=== PATIENT | male | born 1935 | race Caucasian/White ===

== ENCOUNTER 2016-10-19 10:41 | Inpatient (IN) | payer OTHER ==
[~2016-10-19] VITALS: Ht 177.8 cm; Wt 101.6 kg
[2016-10-19] VITALS (8 sets, daily range): BP systolic 123–146; BP diastolic 64–77; PULSE 91–119; TEMP 36.5–36.8; O2SAT 85–96; Ht 177.8 cm; Wt 101.6 kg
[~2016-10-19 10:41] MED LIST: ALBUAER2 INH; AMIO200T4 PO; ASTN NAE; ATV1 PO; DUTA1CAP3 PO; FENO134C PO; FEXO1TAB46 PO; FLM4 PO; FLNIN/ NAE; FURO20TA PO; LEVO75TA PO; LSN40 PO; MAGN400T5 PO; MECL25TA2 PO; NIAC250T8 PO; NRN100 PO; NRV/10 PO; OMEP20CA9 PO; VENL150C56 PO; WARF-280 PO
[2016-10-19] MEDS ORDERED: METHYLPREDNISOLONE 125 MG VIAL IV STA (10:53)
[2016-10-19] MEDS: MAGNESIUM SULFATE 1GM / D5W 1 GM BAG IV STA (10:55)
[2016-10-19] MEDS ORDERED: ALBUT/IPRATROP 3MG/0.5MG NEB 3 ML VIAL INH STA (10:55)
--- NOTE | 2016-10-19 10:58 | EMERGENCY ROOM VISIT NOTE ---
History Report prepared by Sonyaibyelitza: Maine Whitfield Under the Supervision of: Dr. Maynor Pinto M.D. First contact with patient: 10:50 Chief Complaint: SHORTNESS OF BREATH Stated Complaint: SHORTNESS OF BREATH Nursing Triage Summary: Pt. went to [facility] this morning due to SOB. Upon arrival , he was 68% RA, EMS called. He arrives speaking in short sentences, denies CP. He denies COPD or lung problems, he has been having trouble breathing since Sunday evening. History of Present Illness The patient is a 81 year old male who presents to the Emergency Room via EMS with complaints of worsening shortness of breath starting 4 days ago. Today, the patient was evaluated at [facility] where his pulse ox was 68% on room air. The patient was sent to the Emergency Room for further evaluation. The patient currently denies any pain. He denies chest pain, abdominal pain, or any other complaints. He denies any history of COPD or lung disease. He did not have any recent surgeries. He has a history of A-Fib and received treatment for it in January 2016. He is on Coumadin. Source of History: patient Onset: 4 days ago Position: other (global) Symptom Intensity: No pain currently Quality: other (shortness of breath) Timing: worsening Associated Symptoms: No chest pain, No abdominal pain Review of Systems See HPI for pertinent positives & negatives. A total of 10 systems reviewed and were otherwise negative. Past Medical & Surgical Medical Problems: (1) Asthma (2) Atrial fibrillation (3) Bilateral hearing loss (4) BPH (benign prostatic hypertrophy) (5) CKD (chronic kidney disease) stage 3, GFR 30-59 ml/min (6) Depression (7) Diabetes mellitus type 2 in obese (8) Difficult intubation (9) Dyslipidemia (10) Esophageal dysmotility (11) Generalized osteoarthritis (12) GERD (gastroesophageal reflux disease) (13) History of basal cell carcinoma (14) History of left bundle branch block (LBBB) (15) HTN (hypertension) (16) Hypothyroidism (17) Lumbar spinal stenosis (18) Meniere's disease (19) VINCENT (obstructive sleep apnea) (20) Osteoarthritis (21) Restless leg syndrome (22) Statin intolerance (23) Systolic CHF (24) Thrombocytopathy Surgical Problems: (1) Cardiac catheterization (2) Cochlear implant in place (3) History of repair of inguinal hernia (4) Implantation of cochlear prosthetic device (5) S/P inguinal hernia repair (6) s/p lumbar decompression/fusion (7) S/P tonsillectomy and adenoidectomy (8) Transurethral prostatectomy Family History Patient reports no known family medical history. Social History Smoking Status: Former Smoker Marital Status: Housing Status: lives with significant other Occupation Status: retired Current/Historical Medications Scheduled Amiodarone Hcl (Cordarone), 200 MG PO DAILY Amlodipine Besylate (Amlodipine Besylate), 10 MG PO DAILY Diltiazem Hcl Coated Beads (Diltiazem Hcl Er), 60 MG PO BID Dutasteride (Dutasteride), 0.5 MG PO DAILY Furosemide (Lasix), 1 TAB PO DAILY Gabapentin (Gabapentin), 200 MG PO HS Levothyroxine Sodium (Levothyroxine Sodium), 1 TAB PO DAILY Lisinopril (Prinivil), 20 MG PO DAILY Loratadine (Claritin), 1 TAB PO DAILY Magnesium Oxide (Mag-Ox), 400 MG PO QAM Polyethylene Glycol 3350 (Miralax), 17 GM PO DAILY Tamsulosin HCl (Tamsulosin HCl), 0.4 MG PO QAM Venlafaxine Hcl (Effexor Extended Rel), 150 MG PO DAILY Warfarin Sodium (Warfarin Sodium), 2.5 MG PO 5XWK Warfarin Sodium (Warfarin Sodium), 5 MG PO 2XWK Scheduled PRN Albuterol (Ventolin Hfa), 2 PUFFS INH Q4H PRN for SOB or Cough Allergies Coded Allergies: Grass (Verified Allergy, Unknown, SEASONAL ALLERGIES, 10/19/16) Penicillins (Verified Allergy, Unknown, BLISTERS IN MOUTH, 10/19/16) Sympathomimetics (Verified Adverse Reaction, Unknown, Decongestants - DROWSINESS, DISORIENTED, FELT WORSE, 10/19/16) Physical Exam Vital Signs Date Time Temp Pulse Resp B/P (MAP) Pulse Ox O2 Delivery O2 Flow Rate FiO2 10/19/16 12:02 115 25 152/86 91 10/19/16 11:57 99 21 95 10/19/16 11:52 112 22 96 10/19/16 11:51 134/82 10/19/16 11:49 131/105 10/19/16 11:47 151 24 10/19/16 11:42 96 24 10/19/16 11:37 103 22 94 10/19/16 11:32 97 20 96 10/19/16 11:27 104 17 97 10/19/16 11:22 113 18 97 10/19/16 11:19 96 95 10/19/16 11:19 96 17 95 BiPAP/CPAP 70 10/19/16 11:17 109 23 95 10/19/16 11:12 103 22 95 10/19/16 11:07 113 27 88 10/19/16 11:02 105 18 91 10/19/16 11:01 140/73 10/19/16 10:57 116 20 91 10/19/16 10:52 97 20 89 10/19/16 10:48 101 10/19/16 10:47 148/99 10/19/16 10:47 148/99 10/19/16 10:44 37.1 106 28 148/99 Room Air 10/19/16 10:44 68 Room Air 10/19/16 10:44 67 Room Air 10/19/16 10:44 85 Non-Rebreather 15.0 Physical Exam GENERAL: Patient is a healthy-appearing well-nourished HEAD: Normocephalic atraumatic EYES: Ocular movements intact pupils equal and react to light OROPHARYNX mucous membranes are moist no exudates present no erythema or edema present NECK: Supple no nuchal rigidity CHEST: Good equal expansion LUNGS: Wheezes at bases bilaterally CARDIAC: Normal S1 and S2 ABDOMEN: Soft nontender no guarding BACK: No CVA tenderness EXTREMITIES: No pain upon palpation normal muscle strength in all groups no clubbing cyanosis or edema NEURO: Patient is following commands and answering questions appropriately. Alert and oriented x3 Cranial Nerves 2-12 grossly intact Medical Decision & Procedures ER Provider Diagnostic Interpretation: X-ray results as stated below per interpretation by me and the radiologist: CHEST ONE VIEW PORTABLE CLINICAL HISTORY: Shortness of breath. COMPARISON STUDY: Chest radiograph October 25, 2015. FINDINGS: There is no pneumothorax. Small bilateral pleural effusions, left larger than right, are noted. There are associated bibasilar opacities. There is also right perihilar opacity. Interstitial thickening has developed. IMPRESSION: Small bilateral pleural effusions with perihilar opacities which favor pulmonary edema. Bilateral pneumonia could appear similar although is considered less likely. Radiographic follow up is recommended. Electronically signed by: Jomar Salazar M.D. 10/19/2016 11:21 AM Dictated Date/Time: 10/19/2016 11:[address] results as stated below per my review and radiologist interpretation: CT ANGIOGRAM OF THE CHEST CLINICAL HISTORY: Dyspnea. Hypoxia. COMPARISON STUDY: Chest CT dated 02/24/2012. Chest x-ray dated 10/19/2016. TECHNIQUE: Following the IV administration of 91 cc of Optiray 320, CT angiogram of the chest was performed from the upper abdomen to the thoracic inlet utilizing the pulmonary embolus protocol. Images are reviewed in the axial, sagittal, and coronal planes. 3-D MIPS images are created and assessed. IV contrast was administered without complication. CT DOSE: 670.62 mGy.cm FINDINGS: Thyroid: Imaged portions of the thyroid gland are normal in size and attenuation. Thoracic aorta: There is atherosclerotic calcification of the thoracic aorta, which is normal in caliber and demonstrates standard 3-vessel arch anatomy. The thoracic aorta is not well opacified. Pulmonary vasculature: The pulmonary trunk is normal in caliber. There are no central filling defects identified in the main, lobar, or proximal segment pulmonary arteries to suggest pulmonary embolus. Evaluation of the peripheral branches is degraded by motion artifact. Heart: The heart is enlarged and without pericardial effusion. The coronary arteries are densely calcified. Lungs and pleural spaces: Evaluation of the lung parenchyma is degraded by respiratory motion artifact. There are moderate pleural effusions with associated bibasilar consolidation. Groundglass consolidation is seen in the right upper and right middle lobes. Diffuse intralobular septal thickening is observed. The trachea and central airways are clear. Mediastinum: There are mildly enlarged mediastinal lymph nodes. Prevascular nodes measure up to 1.5 cm in short axis. Paratracheal nodes measure up to 1.8 cm in short axis. A subcarinal node measures 2.1 cm in short axis. Eliana: Clear. Axillae: There is no axillary lymphadenopathy. Upper abdomen: Partially visualized upper abdominal viscera is within normal limits. Skeletal structures: No lytic or blastic bony lesions are seen. IMPRESSION: 1. There is no evidence of pulmonary embolus in the main, lobar, or proximal segmental pulmonary arteries. 2. Moderate pleural effusions with bibasilar consolidation. This likely represents atelectasis. Correlate clinically for evidence of pneumonia. 3. Diffuse intralobular septal thickening is identified and consistent with congestive failure. 4. There is groundglass consolidation in the right upper and right middle lobes. This is asymmetric to the left. This could represent an infectious/inflammatory pneumonitis, pulmonary hemorrhage, and/or asymmetric pulmonary edema. Clinical correlation will be required. Radiographic follow-up to resolution is recommend. 5. Mildly enlarged mediastinal lymph nodes are nonspecific. 6. Additional findings as above. Electronically signed by: Destin Jackson M.D. 10/19/2016 12:55 PM Dictated Date/Time: 10/19/2016 12:47 PM Laboratory Results 10/19/16 10:55 Red Blood Count 4.32, Mean Corpuscular Volume 87.3, Mean Corpuscular Hemoglobin 27.5, Mean Corpuscular Hemoglobin Concent 31.6, Mean Platelet Volume 10.3, Neutrophils (%) (Auto) 82.1, Lymphocytes (%) (Auto) 8.6, Monocytes (%) (Auto) 8.0, Eosinophils (%) (Auto) 0.6, Basophils (%) (Auto) 0.3, Neutrophils # (Auto) 11.03, Lymphocytes # (Auto) 1.16, Monocytes # (Auto) 1.07, Eosinophils # (Auto) 0.08, Basophils # (Auto) 0.04 10/19/16 10:55 Test 10/19/16 10:55 10/19/16 11:10 White Blood Count 13.44 K/uL (4.8-10.8) Red Blood Count 4.32 M/uL (4.7-6.1) Hemoglobin 11.9 g/dL (14.0-18.0) Hematocrit 37.7 % (42-52) Mean Corpuscular Volume 87.3 fL (80-100) Mean Corpuscular Hemoglobin 27.5 pg (25-34) Mean Corpuscular Hemoglobin Concent 31.6 g/dl (32-36) Platelet Count 289 K/uL (130-400) Mean Platelet Volume 10.3 fL (7.4-10.4) Neutrophils (%) (Auto) 82.1 % Lymphocytes (%) (Auto) 8.6 % Monocytes (%) (Auto) 8.0 % Eosinophils (%) (Auto) 0.6 % Basophils (%) (Auto) 0.3 % Neutrophils # (Auto) 11.03 K/uL (1.4-6.5) Lymphocytes # (Auto) 1.16 K/uL (1.2-3.4) Monocytes # (Auto) 1.07 K/uL (0.11-0.59) Eosinophils # (Auto) 0.08 K/uL (0-0.5) Basophils # (Auto) 0.04 K/uL (0-0.2) RDW Standard Deviation 56.2 fL (36.4-46.3) RDW Coefficient of Variation 17.5 % (11.5-14.5) Immature Granulocyte % (Auto) 0.4 % Immature Granulocyte # (Auto) 0.06 K/uL (0.00-0.02) Nucleated RBC Absolute Count (auto) 0.03 K/uL (0-0) Nucleated Red Blood Cells % 0.2 % Prothrombin Time 17.2 SECONDS (9.0-12.0) Prothromb Time International Ratio 1.6 (0.9-1.1) Anion Gap 9.0 mmol/L (3-11) Est Creatinine Clear Calc Drug Dose 51.5 ml/min Estimated GFR () 53.8 Estimated GFR (Non- 46.5 BUN/Creatinine Ratio 14.9 (10-20) Calcium Level 8.9 mg/dl (8.5-10.1) Total Bilirubin 0.6 mg/dl (0.2-1) Aspartate Amino Transf (AST/SGOT) 17 U/L (15-37) Alanine Aminotransferase (ALT/SGPT) 34 U/L (12-78) Alkaline Phosphatase 100 U/L (45-117) Total Creatine Kinase 72 U/L (39-308) Creatine Kinase MB 2.3 ng/ml (0.5-3.6) Creatine Kinase MB Ratio 3.2 (0-3.0) Troponin I 0.078 ng/ml (0-0.045) Pro-B-Type Natriuretic Peptide 4405 pg/ml (0-1800) Total Protein 7.1 gm/dl (6.4-8.2) Albumin 3.2 gm/dl (3.4-5.0) Globulin 3.9 gm/dl (2.5-4.0) Albumin/Globulin Ratio 0.8 (0.9-2) Procalcitonin 0.09 ng/ml (0-0.5) Influenza Type A Antigen Neg for Influ A (NEG) Influenza Type B Antigen Neg for Influ B (NEG) Labs reviewed by ED physician. Medications Administered Medications (Trade) Dose Ordered Sig/Kimberly Route Start Time Stop Time Status Last Admin Dose Admin Methylprednisolone Sodium Succinate (Solu-Medrol IV) 60 mg NOW STAT IV 10/19/16 10:53 10/19/16 10:56 DC 10/19/16 11:17 60 MG Albuterol/ Ipratropium (Duoneb) 12 ml ONE STAT INH 10/19/16 10:55 10/19/16 10:57 DC 10/19/16 11:18 12 ML Magnesium Sulfate (Magnesium Sulfate) 1 gm NOW STAT IV 10/19/16 10:55 10/19/16 10:57 DC 10/19/16 10:55 1 GM Ceftriaxone Sodium (Rocephin Inj) 1 gm NOW STAT IV 10/19/16 11:27 10/19/16 11:29 DC 10/19/16 12:27 1 GM Levofloxacin (Levaquin / D5W) 750 mg NOW STAT IV 10/19/16 11:27 10/19/16 11:29 DC 10/19/16 11:49 750 MG Furosemide (Lasix Inj) 40 mg NOW STAT IV 10/19/16 11:27 10/19/16 11:29 DC 10/19/16 11:49 40 MG ECG Indication: SOB/dyspnea Rate (beats per minute): 115 Rhythm: atrial fibrillation (with RVR) Findings: LBBB, no acute ischemic change Comparison ECG Date: October 27, 2015 Change: no significant change ED Course 1058: Past medical records reviewed. The patient was evaluated in room B12B. A complete history and physical examination was performed. 1053: Solu-Medrol IV 60 mg IV 1055: Magnesium Sulfate 1 gm IV, DuoNeb 12 ml INH 1127: Lasix Inj 40 mg IV, Levofloxacin 750 mg IV, Rocephin Inj 1 gm IV 1131: Upon reexamination the patient is resting comfortably. I discussed results and treatment plan with the patient. He verbalizes agreement and understanding. I spoke with MATTHEW Cortez from the [facility] Service. The patient will be evaluated for further management. Medical Decision Medication Reconciliation: I attest that I have personally reviewed the patient' s current medication list Blood Pressure Screening: Patient was found to have an elevated blood pressure and was referred to their primary care doctor for recheck and further treatment Differential diagnosis: Etiologies such as infections, reactive airway disease, pneumonia, pneumothorax , COPD, CHF, cardiac ischemia, pulmonary embolism, musculoskeletal, gastrointestinal, as well as others were entertained. This is an 81-year-old male who presents emergency department hypoxic. The patient was immediately placed on BiPAP upon arrival to the emergency department. An IV was established, the patient does have an elevation in his white blood count cell count. He was pancultured and started on Rocephin as well as Levaquin. His chest x-rays concerning for pneumonia versus pulmonary edema. Patient was also given Lasix. I did discuss the case with the hospitalist service who agreed to admit the patient. Consults Time Called: 1125 Consulting Physician[facility] Returned Call: [phone] I [facility] Impression Primary Impression: Hypoxia Additional Impressions: Pneumonia CHF exacerbation Critical Care I have personally spent greater than 30 minutes of critical care time in the direct management of this patient. This includes bedside care, interpretation of diagnostic studies, and testing, discussion with consultants, patient, and family members, and other required patient management activities. This 30 minutes is in excess of all separately billable procedures. Scribe Attestation The scribe's documentation has been prepared under my direction and personally reviewed by me in its entirety. I confirm that the note above accurately reflects all work, treatment, procedures, and medical decision making performed by me. Departure Information Dispostion Being Evaluated By Hospitalist Referrals Kita Santillan M.D. (PCP) Patient Instructions My [facility] Problem Qualifiers Additional Impressions: Pneumonia Pneumonia type: due to unspecified organism Laterality: unspecified laterality Lung location: unspecified part of lung Qualified Codes: J18.9 - Pneumonia, unspecified organism CHF exacerbation Congestive heart failure type: unspecified congestive heart failure type Qualified Codes: I50.9 - Heart failure, unspecified
[2016-10-19 11:07] LABS: BASO % 0.3 %; BASO ABS # 0.04 K/uL (0-0.2); COMPLETE YES; EOS % 0.6 %; HEMATOCRIT 37.7 % (42-52); IG% 0.4 %; LYMPH % 8.6 %; LYMPH ABS # 1.16 K/uL (1.2-3.4); MEAN CELL VOLUME 87.3 fL (80-100); MEAN CORPUSCULAR HEMOGLOBIN 27.5 pg (25-34); MEAN CORPUSCULAR HGB CONC 31.6 g/dl (32-36); MEAN PLATELET VOLUME 10.3 fL (7.4-10.4); NEUT % 82.1 %; PLATELET COUNT 289 K/uL (130-400); RED BLOOD COUNT 4.32 M/uL (4.7-6.1); WHITE BLOOD COUNT 13.44 K/uL (4.8-10.8)
[2016-10-19 11:15] LABS: INR 1.6 (0.9-1.1); PROTHROMBIN TIME (PATIENT) 17.2 SECONDS (9.0-12.0)
--- NOTE | 2016-10-19 11:22 | DIAGNOSTIC IMAGING REPORT ---
CHEST ONE VIEW PORTABLE CLINICAL HISTORY: Shortness of breath. COMPARISON STUDY: Chest radiograph October 25, 2015. FINDINGS: There is no pneumothorax. Small bilateral pleural effusions, left larger than right, are noted. There are associated bibasilar opacities. There is also right perihilar opacity. Interstitial thickening has developed. IMPRESSION: Small bilateral pleural effusions with perihilar opacities which favor pulmonary edema. Bilateral pneumonia could appear similar although is considered less likely. Radiographic follow up is recommended. Electronically signed by: Jomar Salazar M.D. 10/19/2016 11:21 AM Dictated Date/Time: 10/19/2016 11:19 AM
[2016-10-19 11:24] LABS: BUN/CREATININE RATIO 14.9 (10-20); CALCIUM 8.9 mg/dl (8.5-10.1); CREATININE 1.4 mg/dl (0.60-1.40)
[2016-10-19] MEDS ORDERED: FUROSEMIDE 40 MG/4 ML VIAL IV STA (11:27)
[2016-10-19] MEDS ORDERED: LEVAQUIN 750MG / 150ML D5W IV STA (11:27)
[2016-10-19] MEDS ORDERED: CEFTRIAXONE SOD INJ 1 GM ADDVIAL IV STA (11:27)
[2016-10-19 11:32] LABS: ALB/GLOB RATIO 0.8 (0.9-2); CKMB/CK RATIO 3.2 (0-3.0)
[2016-10-19] MEDS ORDERED: OPTIRAY 320 IV PRN (11:45)
[2016-10-19] MEDS ORDERED: LISI20TA3 PO (11:47)
[2016-10-19] MEDS ORDERED: DILT120C68 PO (11:48)
[2016-10-19] MEDS ORDERED: ONDANSETRON INJ 2 MG/ML 2 ML VIAL IV PRN (12:15)
[2016-10-19 12:30] LABS: ARTERIAL BLD GAS O2 SATURATION 95.6 % (90-95); ARTERIAL BLOOD GAS BASE EXCESS -0.4 mEq/L (-9-1.8); ARTERIAL BLOOD GAS HCO3 24 mmol/L (19-24); ARTERIAL BLOOD GAS PO2 82 mm/Hg (80-95); ARTERIAL BLOOD GAS pH 7.43 (7.35-7.45)
[2016-10-19 12:35] LABS: ALLEN TEST POS (POS)
[2016-10-19 12:39] LABS: O2 ADMINISTRATION 60% BIPAP
[2016-10-19] MEDS ORDERED: LEVO150T9 PO (12:49)
[2016-10-19] MEDS ORDERED: POLY335019 PO (12:50)
[2016-10-19] MEDS ORDERED: AMIO200T4 PO (12:50)
[2016-10-19] MEDS ORDERED: DILT120C PO (12:50)
[2016-10-19] MEDS ORDERED: LORA10TA51 PO (12:50)
--- NOTE | 2016-10-19 12:57 | DIAGNOSTIC IMAGING REPORT ---
CT ANGIOGRAM OF THE CHEST CLINICAL HISTORY: Dyspnea. Hypoxia. COMPARISON STUDY: Chest CT dated 02/24/2012. Chest x-ray dated 10/19/2016. TECHNIQUE: Following the IV administration of 91 cc of Optiray 320, CT angiogram of the chest was performed from the upper abdomen to the thoracic inlet utilizing the pulmonary embolus protocol. Images are reviewed in the axial, sagittal, and coronal planes. 3-D MIPS images are created and assessed. IV contrast was administered without complication. CT DOSE: 670.62 mGy.cm FINDINGS: Thyroid: Imaged portions of the thyroid gland are normal in size and attenuation. Thoracic aorta: There is atherosclerotic calcification of the thoracic aorta, which is normal in caliber and demonstrates standard 3-vessel arch anatomy. The thoracic aorta is not well opacified. Pulmonary vasculature: The pulmonary trunk is normal in caliber. There are no central filling defects identified in the main, lobar, or proximal segment pulmonary arteries to suggest pulmonary embolus. Evaluation of the peripheral branches is degraded by motion artifact. Heart: The heart is enlarged and without pericardial effusion. The coronary arteries are densely calcified. Lungs and pleural spaces: Evaluation of the lung parenchyma is degraded by respiratory motion artifact. There are moderate pleural effusions with associated bibasilar consolidation. Groundglass consolidation is seen in the right upper and right middle lobes. Diffuse intralobular septal thickening is observed. The trachea and central airways are clear. Mediastinum: There are mildly enlarged mediastinal lymph nodes. Prevascular nodes measure up to 1.5 cm in short axis. Paratracheal nodes measure up to 1.8 cm in short axis. A subcarinal node measures 2.1 cm in short axis. Eliana: Clear. Axillae: There is no axillary lymphadenopathy. Upper abdomen: Partially visualized upper abdominal viscera is within normal limits. Skeletal structures: No lytic or blastic bony lesions are seen. IMPRESSION: 1. There is no evidence of pulmonary embolus in the main, lobar, or proximal segmental pulmonary arteries. 2. Moderate pleural effusions with bibasilar consolidation. This likely represents atelectasis. Correlate clinically for evidence of pneumonia. 3. Diffuse intralobular septal thickening is identified and consistent with congestive failure. 4. There is groundglass consolidation in the right upper and right middle lobes. This is asymmetric to the left. This could represent an infectious/inflammatory pneumonitis, pulmonary hemorrhage, and/or asymmetric pulmonary edema. Clinical correlation will be required. Radiographic follow-up to resolution is recommend. 5. Mildly enlarged mediastinal lymph nodes are nonspecific. 6. Additional findings as above. Electronically signed by: Destin Jackson M.D. 10/19/2016 12:55 PM Dictated Date/Time: 10/19/2016 12:47 PM
[2016-10-19] MEDS ORDERED: LEVALBUTEROL 0.63MG/3 ML NEB INH PRN (13:15)
[2016-10-19] MEDS ORDERED: METOPROLOL TARTRATE 1 MG/ML VIAL IV PRN (13:15)
[2016-10-19] MEDS ORDERED: PROMETHAZINE HCL INJ 12.5 MG in SODIUM CHLORIDE 0.9% 50ML 50 ML IV PRN (13:45)
[2016-10-19 14:01] LABS: INFLUENZA A PCR Uninterpretable (NEG); INFLUENZA B PCR Uninterpretable (NEG)
--- NOTE | 2016-10-19 15:16 | History and Physical ---
History & Physical Date & Time of Service: Oct 19, 2016 ~ 11:45 Chief Complaint: Shortness Of Breath Primary Care Physician: Kita Santillan M.D. History of Present Illness 81 year old male who presents to the ER with shortness of breath. Patient reports his symptoms started about 5 days ago. He was seen at his PCP's office today and was found to be hypoxic so he was sent to the ER for further evaluation. Patient reports progressive shortness of breath. He reports shortness of breath with minimal exertion. He reports an occasional non productive cough. He traveled to [place] via train last week. He reports increasing lower extremity edema. He denies orthopnea. He does not weigh himself on a daily basis. He denies fever and chills. He has has episodes of diaphoresis. He reports some chest soreness from the cough and shortness of breath. Denies exertional chest pain or pressure or palpitations. He reports mild intermittent lightheadedness and dizziness which is chronic. He reports diarrhea. No abdominal pain, nausea, vomiting, BRBPR, or dark tarry stools. He denies any urinary symptoms. In the ER, patient was hypoxic in the 60s on room air and 85% on NRB. Patient was placed on BiPap with improvement in saturations. CXR is showing pulmonary edema vs. BL pneumonia. ProBNP is elevated , trop is mildly elevated, no EKG changes. He was treated with neb, solumedrol, IV Mg+, IV Lasix, Rocephin, and Levaquin. Past Medical/Surgical History Medical Problems: (1) Asthma Permanent Comment: intermittent Status: Chronic (2) Atrial fibrillation Status: Chronic (3) Bilateral hearing loss Status: Chronic (4) BPH (benign prostatic hypertrophy) Status: Chronic (5) CKD (chronic kidney disease) stage 3, GFR 30-59 ml/min Status: Chronic (6) Depression Status: Chronic (7) Diabetes mellitus type 2 in obese Permanent Comment: diet controlled Status: Chronic (8) Difficult intubation Status: Chronic (9) Dyslipidemia Status: Chronic (10) Esophageal dysmotility Status: Chronic (11) Generalized osteoarthritis Status: Chronic (12) GERD (gastroesophageal reflux disease) Status: Chronic (13) History of basal cell carcinoma Status: Chronic (14) History of left bundle branch block (LBBB) Status: Chronic (15) HTN (hypertension) Status: Chronic (16) Hypothyroidism Status: Chronic (17) Lumbar spinal stenosis Permanent Comment: s/p lumbar decompression 01/2015 Status: Chronic (18) Meniere's disease Status: Chronic (19) VINCENT (obstructive sleep apnea) Status: Chronic (20) Osteoarthritis Status: Chronic (21) Restless leg syndrome Status: Chronic (22) Statin intolerance Status: Chronic (23) Systolic CHF Permanent Comment: echo 08/2015 - EF 45-50% Status: Chronic (24) Thrombocytopathy Permanent Comment: platelet defect Status: Chronic Surgical Problems: (1) Cardiac catheterization Permanent Comment: 2001 normal Status: Resolved (2) 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 (3) History of repair of inguinal hernia Status: Resolved (4) Implantation of cochlear prosthetic device Status: Resolved (5) S/P inguinal hernia repair Status: Chronic (6) s/p lumbar decompression/fusion Status: Chronic (7) S/P tonsillectomy and adenoidectomy Status: Chronic (8) Transurethral prostatectomy Status: Resolved Family History non contributory due to patient's advanced age Social History Smoking Status: Former Smoker Alcohol Use: occasionally Marital Status: Housing status: lives with significant other Immunizations History of Influenza Vaccine: Yes Influenza Vaccine Date: Mar 16, 2016 History of Tetanus Vaccine?: Yes Tetanus Immunization Date: Sep 25, 2012 History of Pneumococcal: Yes Pneumococcal Date: Jan 06, 2016 Multi-Drug Resistant Organisms History of MDRO: No Allergies Coded Allergies: Grass (Verified Allergy, Unknown, SEASONAL ALLERGIES, 10/19/16) Penicillins (Verified Allergy, Unknown, BLISTERS IN MOUTH, 10/19/16) Sympathomimetics (Verified Adverse Reaction, Unknown, Decongestants - DROWSINESS, DISORIENTED, FELT WORSE, 10/19/16) Home Medications Scheduled Amiodarone Hcl (Cordarone), 200 MG PO DAILY Amlodipine Besylate (Amlodipine Besylate), 10 MG PO DAILY Diltiazem Hcl (Diltiazem Hcl Er), 60 MG PO DAILY Dutasteride (Dutasteride), 0.5 MG PO DAILY Furosemide (Lasix), 1 TAB PO DAILY Gabapentin (Gabapentin), 200 MG PO HS Levothyroxine Sodium (Levothyroxine Sodium), 1 TAB PO DAILY Lisinopril (Prinivil), 20 MG PO DAILY Loratadine (Claritin), 1 TAB PO DAILY Magnesium Oxide (Mag-Ox), 400 MG PO QAM Polyethylene Glycol 3350 (Miralax), 17 GM PO DAILY Tamsulosin HCl (Tamsulosin HCl), 0.4 MG PO QAM Venlafaxine Hcl (Effexor Extended Rel), 150 MG PO DAILY Warfarin Sodium (Warfarin Sodium), 2.5 MG PO 5XWK Warfarin Sodium (Warfarin Sodium), 5 MG PO 2XWK Scheduled PRN Albuterol (Ventolin Hfa), 2 PUFFS INH Q4H PRN for SOB or Cough Review of Systems ROS per HPI, all other systems reviewed and negative Physical Exam Vital Signs Date Time Temp Pulse Resp B/P (MAP) Pulse Ox O2 Delivery O2 Flow Rate FiO2 10/19/16 12:22 118 29 92 10/19/16 12:17 115 25 86 10/19/16 12:16 138/86 10/19/16 12:12 103 22 97 10/19/16 12:10 112 10/19/16 12:07 105 23 97 10/19/16 12:02 115 25 152/86 91 10/19/16 11:57 99 21 95 10/19/16 11:52 112 22 96 10/19/16 11:51 134/82 10/19/16 11:49 131/105 10/19/16 11:47 151 24 10/19/16 11:42 96 24 10/19/16 11:37 103 22 94 10/19/16 11:32 97 20 96 10/19/16 11:27 104 17 97 10/19/16 11:22 113 18 97 10/19/16 11:19 96 95 10/19/16 11:19 96 17 95 BiPAP/CPAP 70 10/19/16 11:17 109 23 95 10/19/16 11:12 103 22 95 10/19/16 11:07 113 27 88 10/19/16 11:02 105 18 91 10/19/16 11:01 140/73 10/19/16 10:57 116 20 91 10/19/16 10:52 97 20 89 10/19/16 10:48 101 10/19/16 10:47 148/99 10/19/16 10:47 148/99 10/19/16 10:44 37.1 106 28 148/99 Room Air 10/19/16 10:44 68 Room Air 10/19/16 10:44 67 Room Air 10/19/16 10:44 85 Non-Rebreather 15.0 General Appearance: no apparent distress Head: normocephalic Eyes: normal inspection ENT: hearing grossly normal Neck: supple, no JVD Respiratory/Chest: no respiratory distress, + decreased breath sounds, + wheezing (faint, scattered, end expiratory), + pertinent finding (tolerating BiPap well) Cardiovascular: + irregularly irregular (rate uncontrolled in the 100s at times ), + pertinent finding (+1-2 edema BLLE) Abdomen/GI: normal bowel sounds, non tender, soft, + distended Extremities/Musculoskelatal: normal inspection, no calf tenderness Neurologic/Psych: no motor/sensory deficits, alert, normal mood/affect, oriented x 3 Skin: normal color, warm/dry Diagnostics Laboratory Results Results Past 24 Hours Test 10/19/16 10:55 10/19/16 11:10 10/19/16 12:09 10/19/16 12:15 Range/Units White Blood Count 13.44 4.8-10.8 K/uL Red Blood Count 4.32 4.7-6.1 M/uL Hemoglobin 11.9 14.0-18.0 g/dL Hematocrit 37.7 42-52 % Mean Corpuscular Volume 87.3 80-100 fL Mean Corpuscular Hemoglobin 27.5 25-34 pg Mean Corpuscular Hemoglobin Concent 31.6 32-36 g/dl Platelet Count 289 130-400 K/uL Mean Platelet Volume 10.3 7.4-10.4 fL Neutrophils (%) (Auto) 82.1 % Lymphocytes (%) (Auto) 8.6 % Monocytes (%) (Auto) 8.0 % Eosinophils (%) (Auto) 0.6 % Basophils (%) (Auto) 0.3 % Neutrophils # (Auto) 11.03 1.4-6.5 K/uL Lymphocytes # (Auto) 1.16 1.2-3.4 K/uL Monocytes # (Auto) 1.07 0.11-0.59 K/uL Eosinophils # (Auto) 0.08 0-0.5 K/uL Basophils # (Auto) 0.04 0-0.2 K/uL RDW Standard Deviation 56.2 36.4-46.3 fL RDW Coefficient of Variation 17.5 11.5-14.5 % Immature Granulocyte % (Auto) 0.4 % Immature Granulocyte # (Auto) 0.06 0.00-0.02 K/uL Nucleated RBC Absolute Count (auto) 0.03 0-0 K/uL Nucleated Red Blood Cells % 0.2 % Prothrombin Time 17.2 9.0-12.0 SECONDS Prothromb Time International Ratio 1.6 0.9-1.1 Sodium Level 144 136-145 mmol/L Potassium Level 4.0 3.5-5.1 mmol/L Chloride Level 111 98-107 mmol/L Carbon Dioxide Level 24 21-32 mmol/L Anion Gap 9.0 3-11 mmol/L Blood Urea Nitrogen 21 7-18 mg/dl Creatinine 1.40 0.60-1.40 mg/dl Est Creatinine Clear Calc Drug Dose 51.5 ml/min Estimated GFR () 53.8 Estimated GFR (Non- 46.5 BUN/Creatinine Ratio 14.9 10-20 Random Glucose 189 70-99 mg/dl Calcium Level 8.9 8.5-10.1 mg/dl Total Bilirubin 0.6 0.2-1 mg/dl Aspartate Amino Transf (AST/SGOT) 17 15-37 U/L Alanine Aminotransferase (ALT/SGPT) 34 12-78 U/L Alkaline Phosphatase 100 45-117 U/L Total Creatine Kinase 72 39-308 U/L Creatine Kinase MB 2.3 0.5-3.6 ng/ml Creatine Kinase MB Ratio 3.2 0-3.0 Troponin I 0.078 0-0.045 ng/ml Pro-B-Type Natriuretic Peptide 4405 0-1800 pg/ml Total Protein 7.1 6.4-8.2 gm/dl Albumin 3.2 3.4-5.0 gm/dl Globulin 3.9 2.5-4.0 gm/dl Albumin/Globulin Ratio 0.8 0.9-2 Procalcitonin 0.09 0-0.5 ng/ml Influenza Type A Antigen Neg for Influ A NEG Influenza Type B Antigen Neg for Influ B NEG Arterial Blood pH 7.43 7.35-7.45 Arterial Blood Partial Pressure CO2 36 35-46 mmHg Arterial Blood Partial Pressure O2 82 80-95 mm/Hg Arterial Blood HCO3 24 19-24 mmol/L Arterial Blood Oxygen Saturation 95.6 90-95 % Arterial Blood Base Excess -0.4 -9-1.8 mEq/L Arterial Blood Gas Delivery 60% BIPAP Casa Test POS POS Microbiology Results 10/19/16 Blood Culture, Received Pending 10/19/16 Blood Culture, Received Pending Diagnostic Radiology CXR IMPRESSION: Small bilateral pleural effusions with perihilar opacities which favor pulmonary edema. Bilateral pneumonia could appear similar although is considered less likely. Radiographic follow up is recommended. CTA CHEST IMPRESSION: 1. There is no evidence of pulmonary embolus in the main, lobar, or proximal segmental pulmonary arteries. 2. Moderate pleural effusions with bibasilar consolidation. This likely represents atelectasis. Correlate clinically for evidence of pneumonia. 3. Diffuse intralobular septal thickening is identified and consistent with congestive failure. 4. There is groundglass consolidation in the right upper and right middle lobes. This is asymmetric to the left. This could represent an infectious/inflammatory pneumonitis, pulmonary hemorrhage, and/or asymmetric pulmonary edema. Clinical correlation will be required. Radiographic follow-up to resolution is recommend. 5. Mildly enlarged mediastinal lymph nodes are nonspecific. 6. Additional findings as above. Impression Assessment and Plan ACUTE HYPOXIC RESPIRATORY FAILURE, MULTIFACTORIAL DUE TO: ACUTE ON CHRONIC SYSTOLIC CHF ASTHMA EXACERBATION POSSIBLE COMMUNITY ACQUIRED PNEUMONIA - admit to tele - patient presenting with increasing shortness of breath x 5 days, minimal non productive cough; in the ER patient was hypoxic in the 60s on room air, 85% on NRB, requiring BiPaP with improvement in saturations - ABG WNL - CXR showing pulmonary edema vs BL pneumonia; elevated proBNP and troponin, WBC 13K, procalcitonin negative - patient meeting sepsis criteria with leukocytosis, tachycardia, and tachypnea ; noted negative procalcitonin, lactate pending - patient reports increased BLLE edema - CTA chest negative for PE (noted sub therapeutic INR) - showing bibasilar consolidations - ? pneumonia, congestive failure, and also ? pulmonary hemorrhage - however unlikely due to lack of hemoptysis and stable H/H - suspect hypoxia, tachycardia, and tachypnea is mostly due to acute CHF and asthma exacerbation (afebrile, minimal cough, negative procalcitonin) but will empirically treat for CAP - s/p Lasix 40mg IV in ED; will continue with 40mg IV BID, daily weights, I/Os - echo 08/2015 - EF 45-50%, will update echo - s/p Levaquin and Rocephin in ED; will continue with Rocephin and Doxycycline due to allergies and prolonged QTC; check MRSA nasal swab and if positive, will add Vanco - blood and sputum cultures - for asthma exacerbation, will place on around the clock IV steroids and nebs - NPO while requiring BiPap to prevent aspiration - cardio consult, case discussed with Dr. Lugo ELEVATED TROPONIN - likely due to acute CHF - no reports of chest pain, EKG shows an old LBBB, no acute ST changes - continue to cycle cardiac enzymes - check resting echo ATRIAL FIBRILLATION - HR uncontrolled on presentation, likely due to respiratory status; improving now while on BiPap - rhythm controlled on amiodarone (ok to continue with prolonged QTC per Dr. Lugo), rate controlled on diltiazem - continue both - INR 1.6 - increase Coumadin dose PROLONGED QTC - monitor EKG daily - avoid QTC prolonging agents when possible DIARRHEA - check stool studies HTN - BP controlled, continue diltiazem, lisinopril, and amlodipine HYPOTHYROIDISM - continue levothyroxine DM - diet controlled - a1c 5.9 08/2016 - check BSG, expect a rise with the use of IV steroids, provide SSI if needed BPH - continue home meds DVT PROPHYLAXIS - on Coumadin CODE STATUS - Per my discussion with the patient, he wishes to have mechanical ventilation only. DISPO - In my clinical judgment this beneficiary meets acute admission criteria, established by [facility], that includes being hospitalized through two midnights. - PT/OT once stable Attending Note: Patient is a 81 yr male with PMH of Afib, CHF, HTN, Hypothyroidism, DM II presents with history of worsening SOB, leg swelling, intermittent dry cough and diarrhea since 5 days duration. Patient was found to be hypoxic and was started on BIPAP in ED. CTA was negative for PE, but showed moderate pleural effusions with possible bibasilar consolidation. Physical Exam: Vitals signs as noted above General Appearance:Moderately built and nourished, mild respiratory distress Head: normocephalic, Atraumatic Eyes: normal inspection, EOMI, PERRL Neck: supple, Trachea midline Respiratory/Chest: Diminished breath sounds, Mild b/l expiratory wheezes Cardiovascular: S1, S2, NSR, No murmur Abdomen/GI:Soft, Non tender, Bowel sounds present, protuberant Extremities/Musculoskelatal:normal inspection, 2+ edema b/l Neurologic/Psych:AAOX3, grossly no focal neurological deficits Skin:normal color,warm Assessment and Plan: Acute hypoxic respiratory failure secondary to CHF and asthma exacerbation Afib with RVR Subtherapeutic INR Pneumonia less likely Elevated Lactate/ troponin likely secondary to above Plan Continue BIPAP for respiratory support continue Diuresis empirically cover with antibiotics Cardiology consulted I personally reviewed the record. Patient is interviewed and examined at bedside. Patient's care is coordinated with Jazzy Juares [facility]. Please refer to the documentation above for details of patient's presentation and for discussion of other issues. VTE Prophylaxis VTE Risk Assessment Done? Y/N: Yes Risk Level: Moderate Given or contraindicated: Warfarin (Coumadin)
[2016-10-19] MEDS ORDERED: DILT60CA PO (15:34)
[2016-10-19] MEDS: GABAPENTIN 100 MG CAP PO SCH (15:59)
[2016-10-19] MEDS ORDERED: WARFARIN SOD 5 MG TAB PO SCH (16:00)
[2016-10-19] MEDS ORDERED: ALBUT/IPRATROP 3MG/0.5MG NEB 3 ML VIAL INH SCH (16:00)
[2016-10-19 16:02] LABS: INFLUENZA A PCR Neg for Influ A (NEG); INFLUENZA B PCR Neg for Influ B (NEG)
[2016-10-19] MEDS: DOXYCYCLINE IV 100 MG in DEXTROSE 5% 100ML 100 ML IV SCH (16:04)
[2016-10-19] MEDS: FUROSEMIDE INJ 40 MG in SYRINGE 0 ML IV SCH (16:48)
--- NOTE | 2016-10-19 16:57 | Cardiology Consultation ---
Cardiology Consultation Date of Consultation: Oct 19, 2016 Requesting Physician: Blanquita Attending Data Recovery Planner: Brittney History of Present Illness This is an 81-year-old with a history of diabetes, left bundle branch block and paroxysmally atrial fibrillation. He and his winter in [place]. This past May he fell from a ladder and struck his head. He was OK after that event but then went in to take a shower and fell again striking his head. This time he was taken to the local emergency department and found to have intracranial bleeding. He was taken off of his Coumadin. No neuro surgery was required. He spent several weeks in a rehab hospital and then returned home hear it in [place]. He has no neurologic deficits from these events. He has no cardiac complaints today. Of note is that he is atrial fibrillation today and when he left the rehab hospital he was told that he was in atrial fibrillation. He has restarted Coumadin and has had no bleeding episodes. He has been admitted with SOB and found to be hypoxic. He has persistent Atrial Fib. Possible pneumonia vs. pulmonary edema from CHF. Past Medical/Surgical History Problem List: Medical Problems: (1) Asthma (2) Atrial fibrillation (3) Bilateral hearing loss (4) BPH (benign prostatic hypertrophy) (5) CKD (chronic kidney disease) stage 3, GFR 30-59 ml/min (6) Depression (7) Diabetes mellitus type 2 in obese (8) Difficult intubation (9) Dyslipidemia (10) Esophageal dysmotility (11) Generalized osteoarthritis (12) GERD (gastroesophageal reflux disease) (13) History of basal cell carcinoma (14) History of left bundle branch block (LBBB) (15) HTN (hypertension) (16) Hypothyroidism (17) Lumbar spinal stenosis (18) Meniere's disease (19) VINCENT (obstructive sleep apnea) (20) Osteoarthritis (21) Restless leg syndrome (22) Statin intolerance (23) Systolic CHF (24) Thrombocytopathy Surgical Problems: (1) Cardiac catheterization (2) Cochlear implant in place (3) History of repair of inguinal hernia (4) Implantation of cochlear prosthetic device (5) S/P inguinal hernia repair (6) s/p lumbar decompression/fusion (7) S/P tonsillectomy and adenoidectomy (8) Transurethral prostatectomy Family History Patient reports no known family medical history. Social History Smoking Status: Former Smoker Alcohol Use: occasionally Marital Status: Housing Status: lives with significant other Review Of Systems General: The patient denies weight change, night sweats, fever, chills. Head: The patient denies headache and prior head trauma. Cardiovascular: SOB and Dyspnea on Exertion. Lower extremity edema and nonproductive cough. Pulmonary: The patient wheeze, pleurisy, hemoptysis, sputum, and excessive snoring. Gastrointestinal: The patient denies nausea, vomiting, diarrhea, constipation, bloating, hematemesis, hematochezia, and abdominal pain. Skin: The patient denies diaphoresis and rash. Musculoskeletal: The patient denies joint pain, joint swelling, myalgia, back pain, neck pain and prior injuries. Neurological: The patient denies prior stroke and seizures Allergies Coded Allergies: Grass (Verified Allergy, Unknown, SEASONAL ALLERGIES, 10/19/16) Penicillins (Verified Allergy, Unknown, BLISTERS IN MOUTH, 10/19/16) Sympathomimetics (Verified Adverse Reaction, Unknown, Decongestants - DROWSINESS, DISORIENTED, FELT WORSE, 10/19/16) Medications Reported Home Medications Medications Dose Route/Sig Max Daily Dose Days Date Category Dose Instructions Diltiazem Hcl Er (Diltiazem Hcl) 60 Mg Cap 60 Mg PO DAILY 10/19/16 Reported Cordarone (Amiodarone Hcl) 200 Mg Tab 200 Mg PO DAILY 10/19/16 Reported Claritin (Loratadine) 10 Mg Tab 1 Tab PO DAILY 30 10/19/16 Reported Miralax (Polyethylene Glycol 3350) 1 Pow Pow 17 Gm PO DAILY 10/19/16 Reported Levothyroxine Sodium 150 Mcg Tab 1 Tab PO DAILY 30 10/19/16 Reported Prinivil (Lisinopril) 20 Mg Tab 20 Mg PO DAILY 10/19/16 Reported Amlodipine Besylate 10 Mg Tab 10 Mg PO DAILY 30 10/28/15 Rx Lasix (Furosemide) 20 Mg Tab 1 Tab PO DAILY 30 10/12/15 Rx Warfarin Sodium 2.5 Mg Tab 5 Mg PO 2XWK 10/12/15 Reported mon, fri Warfarin Sodium 2.5 Mg Tab 2.5 Mg PO 5XWK 10/12/15 Reported all days except sunday and sunday Gabapentin 100 Mg Cap 200 Mg PO HS 10/12/15 Reported Effexor Extended Rel (Venlafaxine Hcl) 150 Mg Cap 150 Mg PO DAILY 10/12/15 Reported Tamsulosin HCl 0.4 Mg Cap 0.4 Mg PO QAM 10/12/15 Reported Dutasteride 0.5 Mg Cap 0.5 Mg PO DAILY 10/12/15 Reported Ventolin Hfa (Albuterol) Aers 2 Puffs INH Q4H PRN 10/12/15 Reported Mag-Ox (Magnesium Oxide) 400 Mg Tab 400 Mg PO QAM 03/02/14 Reported Physical Exam Vital Signs (Last 8hrs): Last 8 Hrs Date Time Temp Pulse Resp B/P (MAP) Pulse Ox O2 Delivery O2 Flow Rate FiO2 10/19/16 15:48 112 95 10/19/16 14:45 91 17 96 BiPAP/CPAP 70 10/19/16 14:42 36.8 119 24 146/77 85 Non-Rebreather 15.0 10/19/16 14:12 102 94 10/19/16 14:07 106 93 10/19/16 14:02 119 90 10/19/16 14:01 139/82 10/19/16 13:57 105 92 10/19/16 13:52 106 92 10/19/16 13:47 122 92 10/19/16 13:46 143/86 10/19/16 13:42 104 92 10/19/16 13:37 105 92 10/19/16 13:36 137/76 10/19/16 13:32 114 137/76 94 10/19/16 13:27 117 94 10/19/16 13:22 105 36 94 10/19/16 13:17 117 28 95 10/19/16 13:16 126/85 10/19/16 13:12 106 38 95 10/19/16 13:07 118 25 89 10/19/16 13:03 161/100 10/19/16 13:02 144 28 60/32 84 10/19/16 12:57 132 27 80 10/19/16 12:52 129 22 89 10/19/16 12:51 133/87 10/19/16 12:22 118 29 92 10/19/16 12:17 115 25 86 10/19/16 12:16 138/86 10/19/16 12:12 103 22 97 10/19/16 12:10 112 10/19/16 12:07 105 23 97 10/19/16 12:02 115 25 152/86 91 10/19/16 11:57 99 21 95 10/19/16 11:52 112 22 96 10/19/16 11:51 134/82 10/19/16 11:49 131/105 10/19/16 11:47 151 24 10/19/16 11:42 96 24 10/19/16 11:37 103 22 94 10/19/16 11:32 97 20 96 10/19/16 11:27 104 17 97 10/19/16 11:22 113 18 97 10/19/16 11:19 96 95 10/19/16 11:19 96 17 95 BiPAP/CPAP 70 10/19/16 11:17 109 23 95 10/19/16 11:12 103 22 95 10/19/16 11:07 113 27 88 10/19/16 11:02 105 18 91 10/19/16 11:01 140/73 10/19/16 10:57 116 20 91 10/19/16 10:52 97 20 89 10/19/16 10:48 101 10/19/16 10:47 148/99 10/19/16 10:47 148/99 10/19/16 10:44 37.1 106 28 148/99 Room Air 10/19/16 10:44 68 Room Air 10/19/16 10:44 67 Room Air 10/19/16 10:44 85 Non-Rebreather 15.0 General Appearance: Alert and Oriented x3. On bipap Head: Normocephalic Atraumatic. Eyes: PERRLA, EOMI, conjunctiva and sclera clear Neck: Supple. No carotid bruits noted. No JVD. No HJD. Respiratory: Breath sounds clear to auscultation bilaterally. No w/r/r. Cardiovascular: Irreg rate and rhythm. S1 and S2 noted. No murmurs, rubs, gallops. PMI non displace. Abdomen: Normal bowel sounds, soft nontender. no abdominal bruits. Extremities: No edema, no clubbing or cyanosis. distal pulses 2/4 bilaterally. Neuro: No focal deficits. Psychiatric: Normal affect. Data Last 24 Hours Test 10/19/16 10:55 10/19/16 11:10 10/19/16 12:15 10/19/16 14:04 White Blood Count 13.44 K/uL Red Blood Count 4.32 M/uL Hemoglobin 11.9 g/dL Hematocrit 37.7 % Mean Corpuscular Volume 87.3 fL Mean Corpuscular Hemoglobin 27.5 pg Mean Corpuscular Hemoglobin Concent 31.6 g/dl Platelet Count 289 K/uL Mean Platelet Volume 10.3 fL Neutrophils (%) (Auto) 82.1 % Lymphocytes (%) (Auto) 8.6 % Monocytes (%) (Auto) 8.0 % Eosinophils (%) (Auto) 0.6 % Basophils (%) (Auto) 0.3 % Neutrophils # (Auto) 11.03 K/uL Lymphocytes # (Auto) 1.16 K/uL Monocytes # (Auto) 1.07 K/uL Eosinophils # (Auto) 0.08 K/uL Basophils # (Auto) 0.04 K/uL RDW Standard Deviation 56.2 fL RDW Coefficient of Variation 17.5 % Immature Granulocyte % (Auto) 0.4 % Immature Granulocyte # (Auto) 0.06 K/uL Nucleated RBC Absolute Count (auto) 0.03 K/uL Nucleated Red Blood Cells % 0.2 % Prothrombin Time 17.2 SECONDS Prothromb Time International Ratio 1.6 Sodium Level 144 mmol/L Potassium Level 4.0 mmol/L Chloride Level 111 mmol/L Carbon Dioxide Level 24 mmol/L Anion Gap 9.0 mmol/L Blood Urea Nitrogen 21 mg/dl Creatinine 1.40 mg/dl Est Creatinine Clear Calc Drug Dose 51.5 ml/min Estimated GFR () 53.8 Estimated GFR (Non- 46.5 BUN/Creatinine Ratio 14.9 Random Glucose 189 mg/dl Calcium Level 8.9 mg/dl Total Bilirubin 0.6 mg/dl Aspartate Amino Transf (AST/SGOT) 17 U/L Alanine Aminotransferase (ALT/SGPT) 34 U/L Alkaline Phosphatase 100 U/L Total Creatine Kinase 72 U/L Creatine Kinase MB 2.3 ng/ml Creatine Kinase MB Ratio 3.2 Troponin I 0.078 ng/ml Pro-B-Type Natriuretic Peptide 4405 pg/ml Total Protein 7.1 gm/dl Albumin 3.2 gm/dl Globulin 3.9 gm/dl Albumin/Globulin Ratio 0.8 Procalcitonin 0.09 ng/ml Influenza Type A (RT-PCR) Uninterpretable Neg for Influ A Influenza Type A Antigen Neg for Influ A Influenza Type B Antigen Neg for Influ B Influenza Type B (RT-PCR) Uninterpretable Neg for Influ B Arterial Blood pH 7.43 Arterial Blood Partial Pressure CO2 36 mmHg Arterial Blood Partial Pressure O2 82 mm/Hg Arterial Blood HCO3 24 mmol/L Arterial Blood Oxygen Saturation 95.6 % Arterial Blood Base Excess -0.4 mEq/L Arterial Blood Gas Delivery 60% BIPAP Casa Test POS Test 10/19/16 14:56 Lactic Acid Level 2.9 mmol/L EKG:Atrial fib with LBBB Assessment & Plan Acute CHF vs pneumonia Systolic vs diastolic dysfunction persistent atrial fib diabetes Recommend: IV diuretics Rate control of Atrial Fib Echo OK with antibiotics for now
[2016-10-19 18:01] LABS: HEMATOCRIT 36.4 % (42-52)
[2016-10-19] MEDS: METHYLPREDNISOLONE IV 40 MG in SYRINGE 0 ML IV SCH (19:49)
[2016-10-20] VITALS (10 sets, daily range): BP systolic 108–145; BP diastolic 60–80; PULSE 84–118; TEMP 36.4–36.8; O2SAT 88–94
[2016-10-20] MEDS: METHYLPREDNISOLONE IV 40 MG in SYRINGE 0 ML IV SCH ×2 (02:55→11:36)
[2016-10-20] MEDS: ACETAMINOPHEN 325 MG TAB PO PRN ×2 (03:04→23:07)
[2016-10-20] MEDS: DOXYCYCLINE IV 100 MG in DEXTROSE 5% 100ML 100 ML IV SCH ×2 (04:24→17:57)
[2016-10-20] MEDS: LEVOTHYROXINE 150 MCG TAB PO SCH (04:28)
--- NOTE | 2016-10-20 07:05 | DIAGNOSTIC IMAGING REPORT ---
CHEST ONE VIEW PORTABLE CLINICAL HISTORY: SOB dyspnea COMPARISON STUDY: 10/19/2016 FINDINGS: Persistent consolidative and/or effusion-type change left base. Subtle improvement in aeration right base with a slight improvement in visibility of the right hemidiaphragm. Findings of perihilar infiltrative and/or edematous change stable to slightly improved. IMPRESSION: Stable to slightly improved exam. Persistent consolidative and/or effusion change of the left and to lesser extent right base. Slightly improved underlying components of pulmonary edema Electronically signed by: Kumar Painter M.D. 10/20/2016 7:03 AM Dictated Date/Time: 10/20/2016 7:01 AM
[2016-10-20 08:10] LABS: HEMATOCRIT 35.7 % (42-52); MEAN CELL VOLUME 85.2 fL (80-100); MEAN CORPUSCULAR HGB CONC 31.7 g/dl (32-36); MEAN PLATELET VOLUME 9.9 fL (7.4-10.4); PLATELET COUNT 286 K/uL (130-400); RED BLOOD COUNT 4.19 M/uL (4.7-6.1)
[2016-10-20 08:20] LABS: INR 1.9 (0.9-1.1); PROTHROMBIN TIME (PATIENT) 20.7 SECONDS (9.0-12.0)
[2016-10-20] MEDS: TAMSULOSIN HCL 0.4 MG CAP PO SCH (08:34)
[2016-10-20] MEDS: MAGNESIUM OXIDE 400 MG TAB PO SCH (08:35)
[2016-10-20] MEDS: VENLAFAXINE HCL XR 150 MG CAPXR PO SCH (08:35)
[2016-10-20] MEDS: LORATADINE 10 MG TAB PO SCH (08:35)
[2016-10-20] MEDS: AMLODIPINE BESYLATE 5 MG TAB PO SCH (08:35)
[2016-10-20] MEDS: LISINOPRIL 20 MG TAB PO SCH (08:35)
[2016-10-20] MEDS: FUROSEMIDE INJ 40 MG in SYRINGE 0 ML IV SCH (08:36)
[2016-10-20 08:41] LABS: BUN/CREATININE RATIO 22.3 (10-20); CALCIUM 9.1 mg/dl (8.5-10.1); CREATININE 1.2 mg/dl (0.60-1.40); POTASSIUM 3.9 mmol/L (3.5-5.1)
[2016-10-20] MEDS ORDERED: AMIODARONE 200 MG TAB PO SCH (09:00)
[2016-10-20] MEDS: CEFTRIAXONE SOD INJ 1 GM in DEXTROSE 5% ADD-VANTAGE 50ML 50 ML IV SCH (11:36)
[2016-10-20] MEDS: DUTASTERIDE 0.5MG PO SCH ×2 (11:36)
[2016-10-20] MEDS ORDERED: DILTIAZEM HCL 30 MG TAB PO ONE (12:15)
--- NOTE | 2016-10-20 12:19 | Cardiology Follow-Up ---
Subjective General Date of Service: Oct 20, 2016. Chief Complaint: sob Pt evaluation today including: conversation w/ patient, physical exam, chart review, lab review, review of studies, review of inpatient medication list History of Present Illness The patient is a 81 year old male admitted with hypoxia due to possible pneumonia or CHF. HX of PAF on amiodarone for approximately a year. No improvement after diuresis and antibiotics. Will hold amiodarone. Start diltiazem for HR control. 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 Physical Exam Vital Signs Last Vital Signs Documentation Date Time Temp Pulse Resp B/P (MAP) Pulse Ox O2 Delivery O2 Flow Rate FiO2 10/20/16 11:43 36.5 118 21 145/67 (93) 89 Nasal Cannula 6.0 10/20/16 04:00 70 Physical Exam Head: normocephalic ENMT: normal ENT inspection Neck: supple Lungs: Auscultation: breath sounds normal, CTA except as noted, no wheezing, no rales/crackles Cardiovascular: Heart Auscultation: no murmurs, irregular rate rhythm Peripheral Pulses: Bruits: none appreciated Abdomen: Inspection & Palpation: soft, non-distended Liver: non-tender, no hepatomegaly Musculoskeletal: normal Extremities: no cyanosis, no edema Neurologic: Cranial Nerves: grossly intact Sensation: grossly intact Assessment and Plan Assessment and Plan Impression: Pneumonia vs. CHF or possible amiodarone pulmonary toxicity. persistent atrial fib Recommendations: Hold amiodarone for now. Restart pt. warfarin. Diltiazem for HR control. Laboratory Results Last 24 Hours Test 10/19/16 12:15 10/19/16 14:04 10/19/16 14:56 10/19/16 17:00 Arterial Blood pH 7.43 Arterial Blood Partial Pressure CO2 36 mmHg Arterial Blood Partial Pressure O2 82 mm/Hg Arterial Blood HCO3 24 mmol/L Arterial Blood Oxygen Saturation 95.6 % Arterial Blood Base Excess -0.4 mEq/L Arterial Blood Gas Delivery 60% BIPAP Casa Test POS Influenza Type A (RT-PCR) Neg for Influ A Influenza Type B (RT-PCR) Neg for Influ B Lactic Acid Level 2.9 mmol/L Creatine Kinase MB Ratio Test 10/19/16 17:02 10/19/16 19:07 10/19/16 23:00 10/19/16 23:10 Hemoglobin 11.4 g/dL Hematocrit 36.4 % Creatine Kinase MB 2.4 ng/ml 2.5 ng/ml Troponin I 0.094 ng/ml 0.078 ng/ml Lactic Acid Level 1.5 mmol/L Creatine Kinase MB Ratio Test 10/20/16 06:12 10/20/16 07:32 10/20/16 11:17 Bedside Glucose 258 mg/dl 123 mg/dl White Blood Count 14.50 K/uL Red Blood Count 4.19 M/uL Hemoglobin 11.3 g/dL Hematocrit 35.7 % Mean Corpuscular Volume 85.2 fL Mean Corpuscular Hemoglobin 27.0 pg Mean Corpuscular Hemoglobin Concent 31.7 g/dl RDW Standard Deviation 53.8 fL RDW Coefficient of Variation 17.3 % Platelet Count 286 K/uL Mean Platelet Volume 9.9 fL Prothrombin Time 20.7 SECONDS Prothromb Time International Ratio 1.9 Sodium Level 145 mmol/L Potassium Level 3.9 mmol/L Chloride Level 111 mmol/L Carbon Dioxide Level 25 mmol/L Anion Gap 9.0 mmol/L Blood Urea Nitrogen 27 mg/dl Creatinine 1.20 mg/dl Est Creatinine Clear Calc Drug Dose 57.9 ml/min Estimated GFR () 64.9 Estimated GFR (Non- 56.0 BUN/Creatinine Ratio 22.3 Random Glucose 149 mg/dl Calcium Level 9.1 mg/dl
[2016-10-20] MEDS: WARFARIN SOD 7.5 MG TAB PO SCH (17:53)
[2016-10-20] MEDS: FUROSEMIDE 40 MG TAB PO SCH (17:53)
--- NOTE | 2016-10-20 18:29 | Progress Note ---
Medicine Progress Note Date & Time of Visit: Oct 20, 2016 at 18:10. Subjective Patient reports feeling alot better, he did wear the bipap overnight and most of today has been on a simple mask with O2 sats ranging from high 80's to low 90 's. His sats do drop with talking and eating as expected. No overnight events noted. Tolerating PO. Denies any CP or cough. LE edema improved. Objective Last 8 Hrs Date Time Temp Pulse Resp B/P (MAP) Pulse Ox O2 Delivery O2 Flow Rate FiO2 10/20/16 16:00 90 Oxymask 12.0 10/20/16 15:29 36.8 103 20 108/69 (82) 90 Mask 15.0 10/20/16 12:00 90 Oxymask 12.0 10/20/16 11:43 36.5 118 21 145/67 (93) 89 Nasal Cannula 6.0 Physical Exam: GENERAL: Patient is in no acute distress. HEENT: No acute trauma, normocephalic, mucous membranes moist, no nasal congestion, no scleral icterus. NECK: No stridor, trachea is midline. LUNGS: Diminished bilaterally, no wheeze, no rhonchi, breath sounds equal. HEART: Without murmurs gallops or rubs, irregularly irregular ABDOMEN: Soft, nontender, bowel sounds positive EXTREMITIES: No cyanosis or edema NEUROLOGIC: Oriented x 3, no acute motor or sensory deficits, no focal weakness. SKIN: No rash, no jaundice, no diaphoresis. Laboratory Results: Last 24 Hours Test 10/19/16 19:07 10/19/16 23:00 10/19/16 23:10 10/20/16 06:12 Lactic Acid Level 1.5 mmol/L Creatine Kinase MB Ratio Creatine Kinase MB 2.5 ng/ml Troponin I 0.078 ng/ml Bedside Glucose 258 mg/dl Test 10/20/16 07:32 10/20/16 11:17 10/20/16 16:23 White Blood Count 14.50 K/uL Red Blood Count 4.19 M/uL Hemoglobin 11.3 g/dL Hematocrit 35.7 % Mean Corpuscular Volume 85.2 fL Mean Corpuscular Hemoglobin 27.0 pg Mean Corpuscular Hemoglobin Concent 31.7 g/dl RDW Standard Deviation 53.8 fL RDW Coefficient of Variation 17.3 % Platelet Count 286 K/uL Mean Platelet Volume 9.9 fL Prothrombin Time 20.7 SECONDS Prothromb Time International Ratio 1.9 Sodium Level 145 mmol/L Potassium Level 3.9 mmol/L Chloride Level 111 mmol/L Carbon Dioxide Level 25 mmol/L Anion Gap 9.0 mmol/L Blood Urea Nitrogen 27 mg/dl Creatinine 1.20 mg/dl Est Creatinine Clear Calc Drug Dose 57.9 ml/min Estimated GFR () 64.9 Estimated GFR (Non- 56.0 BUN/Creatinine Ratio 22.3 Random Glucose 149 mg/dl Calcium Level 9.1 mg/dl Bedside Glucose 123 mg/dl 208 mg/dl Assessment & Plan ACUTE HYPOXIC RESPIRATORY FAILURE: -likely multifactorial due to acute on chronic systolic CHF, possible CAP, and less likely asthma exacerbation -patient with hypoxia, tachycardia, tachypnea -CTA chest negative for PE -CXR and CT chest indicate possible bibasilar atelectasis with moderate effusions and possible consolidation/pneumonia -presented with increasing SOB for 5 days, minimal non productive cough; increased B/L LE edema. -in the ER patient was hypoxic to the 60s on RA, 85% on NRB mask, required bipap with improvement in saturations; used bipap overnight and most of today was on an oxygen mask -ABG WNL -BNP elevated, had leukocytosis, procalcitonin and lactate negative -sepsis criteria met with leukocytosis, tachycardia, and tachypnea -continued on Lasix 40mg IV BID -continue daily weights, strict I's & O's -was given Levaquin and Rocephin in ED; continued on Rocephin and Doxycycline day#2 -blood and sputum cultures pending -for possible asthma exacerbation, patient was started on IV steroids and nebs -Cardio consulted, appreciate recs -Pulm consulted ELEVATED TROPONIN: -likely due to acute CHF -no reports of chest pain, EKG shows an old LBBB, no acute ST changes -cardiac enzymes were slightly elevated but leveled off -TTE: ATRIAL FIBRILLATION: -rate was uncontrolled on presentation -slightly improving since treatment with diuretics, diltiazem, and bipap -rhythm controlled on amiodarone previously, but given persistent hypoxia, amiodarone was stopped by Cardio for possibility of pulm amio tox -restarted on diltiazem -INR subtherapeutic 1.6-->1.9 -Coumadin dose was increased PROLONGED QTc: -monitor EKG daily -avoid QTC prolonging agents DIARRHEA: -check stool culture and c diff are negative HTN -BP controlled -continued on diltiazem, lisinopril, and amlodipine HYPOTHYROIDISM: -continue levothyroxine DM Type II: -diet controlled -HbA1c 5.9 08/2016 -monitor BSG, expect rise with the use of IV steroids -SSI if needed BPH: -continue flomax DVT PROPHYLAXIS: -on Coumadin Current Inpatient Medications: Current Inpatient Medications Medications (Trade) Dose Ordered Sig/Kimberly Route Start Time Stop Time Status Last Admin Dose Admin Ioversol (Optiray 320) 125 ml UD PRN IV 10/19/16 11:45 10/23/16 11:44 Acetaminophen (Tylenol Tab) 650 mg Q4H PRN PO 10/19/16 12:15 11/18/16 12:14 10/20/16 03:04 650 MG Methylprednisolone Sodium Succinate 40 mg/Syringe 0.64 ml @ 1.5 mls/min Q8H IV 10/19/16 19:00 11/18/16 18:59 10/20/16 11:36 1.5 MLS/MIN Doxycycline Hyclate 100 mg/ Dextrose 110 ml @ 50 mls/hr Q12@0400,1600 IV 10/19/16 16:00 10/26/16 15:59 10/20/16 17:57 50 MLS/HR Ceftriaxone Sodium 1 gm/ Dextrose 50 ml @ 100 mls/hr DAILY@1200 IV 10/20/16 12:00 10/25/16 12:29 10/20/16 11:36 100 MLS/HR Gabapentin (Neurontin Cap) 200 mg HS PO 10/19/16 21:00 11/18/16 20:59 Levothyroxine Sodium (Synthroid Tab) 150 mcg DAILYBB PO 10/20/16 06:00 11/19/16 05:59 10/20/16 04:28 150 MCG Lisinopril (Zestril Tab) 20 mg DAILY PO 10/20/16 09:00 11/19/16 08:59 10/20/16 08:35 20 MG Loratadine (Claritin Tab) 10 mg DAILY PO 10/20/16 09:00 11/19/16 08:59 10/20/16 08:35 10 MG Magnesium Oxide (Mag-Ox Tab) 400 mg QAM PO 10/20/16 09:00 11/19/16 08:59 10/20/16 08:35 400 MG Tamsulosin HCl (Flomax Cap) 0.4 mg QAM PO 10/20/16 09:00 11/19/16 08:59 10/20/16 08:34 0.4 MG Venlafaxine HCl (effeXOR EXTENDED REL CAP) 150 mg DAILY PO 10/20/16 09:00 11/19/16 08:59 10/20/16 08:35 150 MG Amlodipine Besylate (Norvasc Tab) 10 mg DAILY PO 10/20/16 09:00 11/19/16 08:59 10/20/16 08:35 10 MG Levalbuterol (Xopenex 0.63 Mg/ 3 Ml Neb) 0.63 mg Q6R PRN INH 10/19/16 13:15 11/18/16 13:14 Metoprolol Tartrate (Lopressor Iv) 2.5 mg Q6 PRN IV 10/19/16 13:15 11/18/16 13:14 Promethazine HCl 12.5 mg/Sodium Chloride 50.5 ml @ 204 mls/hr Q6H PRN IV 10/19/16 13:45 11/18/16 13:44 Dutasteride (Avodart) 0.5 mg DAILY PO 10/20/16 09:00 11/19/16 08:59 10/20/16 11:36 0.5 MG Diltiazem HCl (Cardizem Tab) 30 mg TID PO 10/20/16 21:00 11/19/16 20:59 Warfarin Sodium (Coumadin Tab) 7.5 mg DAILY@16 PO 10/20/16 16:00 11/19/16 15:59 10/20/16 17:53 7.5 MG Furosemide (Lasix Tab) 40 mg BID17 PO 10/20/16 17:00 11/19/16 16:59 10/20/16 17:53 40 MG
--- NOTE | 2016-10-20 19:18 | Pulmonary Consultation ---
History General Date of Service: Oct 20, 2016. Stated Complaint: Acut Respratory Failure With Hypoxia HPI The patient is a 81 year old male who presents to [facility] with complaints of Acut Respratory Failure With Hypoxia. The patient's primary care provider is Kita Santillan M.D.. He has had shortness of breath for the past 5 days. It has been getting progressively worse. In the past day or 2 he has been short of breath almost at rest. When he is sitting still but moving his arms he would get short of breath. He sometimes was short of breath talking. He has been markedly limited in what he could do. He's had significant hypoxia. The patient was found yesterday to have severe hypoxia when he visited his primary doctor's office. Saturations were in the 60s. He was brought to the emergency room. The patient remains quite short of breath. He has required a lot of oxygen. The patient denies having chest pains. He has noticed increased swelling of the lower extremities. He has a cough which is just occasional. He's had no sputum. There is been no chills fevers or sweats. The patient has a history of atrial fibrillation. From a pulmonary perspective he was told of having asthma since his upper 60s. It is generally mild. He also has sleep apnea. He wears CPAP but does not know the CPAP pressures. He states he wears the CPAP nightly. Last night he wore BiPAP in the hospital. He did not mind the pressures by he was uncomfortable with our mask. The patient spends andrews in [place]. Subsequently he just recently had a trip to [email or web address]. This past winter he suffered 2 falls in [place]. The first was falling off a ladder when he was trying to fix an ongoing. The second was in the bathroom. Subsequently he was found to have an intracranial bleed. His anticoagulation was stopped for a while but was subsequently restarted. He has never been told that he had pleural effusion before and he was never told that he had congestive heart failure before. The patient has not smoked since 1962 when he was 27 years old and he only started smoking about age 23. Review of Systems Gen.: Energy level has been fair. Neurologic: No recent neurologic deficits. He did have the cerebral bleed earlier this year as noted above. Ophthalmic: No visual complaints ENT: Some nasal congestion. He does wear CPAP with nasal pillows as noted. Cardiac: No chest pains or palpitations Pulmonary: As noted in history of present illness GI: Appetite is good. Denies nausea vomiting diarrhea constipation : The patient has noticed he is not passing is much urine as usual. Musculoskeletal: No acute myalgias or arthralgias. He does have chronic pain related to lumbar stenosis. He is had 2 surgeries. Dermatologic: No rashes but he has had the swelling noted above Endocrine: No adenopathy Past Medical History Past Medical History: Atrial fibrillation Asthma Bilateral hearing loss BPH Chronic kidney disease stage III Depression diabetes mellitus hypertension Hyperlipidemia DJD GERD Hypothyroidism Mnire's disease Sleep apnea Restless leg syndrome Past Surgical History: Cardiac catheterization Cochlear implant surgery Shunt for Mnire's disease Inguinal hernia repair Lumbar surgery 2 Tonsillectomy and adenoidectomy TUR of the prostate Family History Patient reports no known family medical history. Mother age 63 diabetes mellitus and dementia Father in his 80s emphysema Social History Tobacco-smoked for 4 years only and none since 1962 Alcohol use is described as occasional wine Hx Tobacco Use In Past Year?: No Smoking Status: Former Smoker Marital status: Housing status: lives with significant other Immunizations History of Influenza Vaccine: Yes Influenza Vaccine Date: Mar 16, 2016 History of Tetanus Vaccine?: Yes Tetanus Immunization Date: Sep 25, 2012 History of Pneumococcal: Yes Pneumococcal Date: Jan 06, 2016 History of MDRO History of MDRO: No Allergies Coded Allergies: Grass (Verified Allergy, Unknown, SEASONAL ALLERGIES, 10/19/16) Penicillins (Verified Allergy, Unknown, BLISTERS IN MOUTH, 10/19/16) Sympathomimetics (Verified Adverse Reaction, Unknown, Decongestants - DROWSINESS, DISORIENTED, FELT WORSE, 10/19/16) Current Medications Reported Home Medications Medications Dose Route/Sig Max Daily Dose Days Date Category Dose Instructions Diltiazem Hcl Er (Diltiazem Hcl) 60 Mg Cap 60 Mg PO DAILY 10/19/16 Reported Cordarone (Amiodarone Hcl) 200 Mg Tab 200 Mg PO DAILY 10/19/16 Reported Claritin (Loratadine) 10 Mg Tab 1 Tab PO DAILY 30 10/19/16 Reported Miralax (Polyethylene Glycol 3350) 1 Pow Pow 17 Gm PO DAILY 10/19/16 Reported Levothyroxine Sodium 150 Mcg Tab 1 Tab PO DAILY 30 10/19/16 Reported Prinivil (Lisinopril) 20 Mg Tab 20 Mg PO DAILY 10/19/16 Reported Amlodipine Besylate 10 Mg Tab 10 Mg PO DAILY 30 10/28/15 Rx Lasix (Furosemide) 20 Mg Tab 1 Tab PO DAILY 30 10/12/15 Rx Warfarin Sodium 2.5 Mg Tab 5 Mg PO 2XWK 10/12/15 Reported mon, sun Warfarin Sodium 2.5 Mg Tab 2.5 Mg PO 5XWK 10/12/15 Reported all days except sunday and sunday Gabapentin 100 Mg Cap 200 Mg PO HS 10/12/15 Reported Effexor Extended Rel (Venlafaxine Hcl) 150 Mg Cap 150 Mg PO DAILY 10/12/15 Reported Tamsulosin HCl 0.4 Mg Cap 0.4 Mg PO QAM 10/12/15 Reported Dutasteride 0.5 Mg Cap 0.5 Mg PO DAILY 10/12/15 Reported Ventolin Hfa (Albuterol) Aers 2 Puffs INH Q4H PRN 10/12/15 Reported Mag-Ox (Magnesium Oxide) 400 Mg Tab 400 Mg PO QAM 03/02/14 Reported Physical Physical Exam Vital Signs: Date Time Temp Pulse Resp B/P (MAP) Pulse Ox O2 Delivery O2 Flow Rate FiO2 10/20/16 16:00 90 Oxymask 12.0 10/20/16 15:29 36.8 103 20 108/69 (82) 90 Mask 15.0 10/20/16 12:00 90 Oxymask 12.0 10/20/16 11:43 36.5 118 21 145/67 (93) 89 Nasal Cannula 6.0 10/20/16 08:00 90 Nasal Cannula 6.0 10/20/16 07:50 36.4 112 22 137/75 (95) 88 BiPAP 10/20/16 04:00 94 BiPAP 70 10/20/16 03:11 36.4 84 20 133/60 (84) 94 BiPAP 10/20/16 00:00 94 BiPAP 70 10/19/16 23:15 36.5 103 19 131/75 (93) 94 BiPAP 10/19/16 20:11 36.7 109 22 123/64 (83) 91 Nasal Cannula 4.0 10/19/16 20:00 90 Humidified Oxygen 5.0 70 The patient is a pleasant 81-year-old male who was cooperative, alert, and oriented. He was mildly short of breath. Weight is 106.9 kg. BMI is 33.8. Temperature is 36.8. He has been afebrile since admission. Pupils were reactive to light. Nasal cannula was in place. Mouth exam showed no erythema or exudate. He has a large neck. No lymph nodes were palpable. It was difficult to assess the neck veins. The chest showed diminished excursions. The patient was very winded just sitting on the side of the bed so he could be examined. Heart rate is 103/m. The rhythm was irregularly irregular. The blood pressure is 108/69. The breath sounds were diffusely diminished but especially in the lower lung groves bilaterally. The breath sounds were tubular at both bases. The respiratory rate was 24 breaths per minute. The oxygen saturation when he was very still was 87%. It did drop down transiently to 68% when sitting him up. The abdomen is obese. Bowel sounds were normal. There was no tenderness to palpation, masses, or organomegaly. He was noted to have diathesis recti. Extremities reveal trace edema both lower extremities. Apparently the edema has lessened since he has been predominantly in bed. The patient's urine output has been poor since admission. He only had 300 mL solid yesterday and 300 mL's out today so far Diagnostics Labs Results Past 24 Hours Test 10/19/16 19:07 10/19/16 23:00 10/19/16 23:10 10/20/16 06:12 Range/Units Lactic Acid Level 1.5 0.4-2.0 mmol/L Creatine Kinase MB Ratio 0-3.0 Creatine Kinase MB 2.5 0.5-3.6 ng/ml Troponin I 0.078 0-0.045 ng/ml Bedside Glucose 258 70-99 mg/dl Test 10/20/16 07:32 10/20/16 11:17 10/20/16 16:23 Range/Units White Blood Count 14.50 4.8-10.8 K/uL Red Blood Count 4.19 4.7-6.1 M/uL Hemoglobin 11.3 14.0-18.0 g/dL Hematocrit 35.7 42-52 % Mean Corpuscular Volume 85.2 80-100 fL Mean Corpuscular Hemoglobin 27.0 25-34 pg Mean Corpuscular Hemoglobin Concent 31.7 32-36 g/dl RDW Standard Deviation 53.8 36.4-46.3 fL RDW Coefficient of Variation 17.3 11.5-14.5 % Platelet Count 286 130-400 K/uL Mean Platelet Volume 9.9 7.4-10.4 fL Prothrombin Time 20.7 9.0-12.0 SECONDS Prothromb Time International Ratio 1.9 0.9-1.1 Sodium Level 145 136-145 mmol/L Potassium Level 3.9 3.5-5.1 mmol/L Chloride Level 111 98-107 mmol/L Carbon Dioxide Level 25 21-32 mmol/L Anion Gap 9.0 3-11 mmol/L Blood Urea Nitrogen 27 7-18 mg/dl Creatinine 1.20 0.60-1.40 mg/dl Est Creatinine Clear Calc Drug Dose 57.9 ml/min Estimated GFR () 64.9 Estimated GFR (Non- 56.0 BUN/Creatinine Ratio 22.3 10-20 Random Glucose 149 70-99 mg/dl Calcium Level 9.1 8.5-10.1 mg/dl Bedside Glucose 123 208 70-99 mg/dl Admission white blood cell count was 13.44. Hemoglobin was 11.9. Platelets were 289,000. INR today is 1.9. Arterial blood gas done yesterday showed a pH of 7.43 with a PCO2 of 36 and a PO2 of 82 on 60% BiPAP. Electrolytes show sodium 145 potassium 3.9 chloride 111 bicarbonate 25. The BUN was 27 with a creatinine of 1.2. The troponin was elevated at 0.078. The proBNP was elevated at 4405. C. difficile was negative. Diagnostic Radiology Chest x-ray done yesterday suggests bilateral pleural effusions as well as some right. Hilar infiltrate. CAT scan of the chest shows moderate sized bilateral pleural effusions. There is interstitial and alveolar infiltrate in the right upper lobe and right middle lobe. There is mild mediastinal adenopathy. EKG EKG showed atrial fibrillation with a left bundle branch block. Impression Assessment and Plan Impressions: #1 respiratory failure with hypoxia #2 congestive heart failure #3 bilateral pleural effusions #4 mediastinal adenopathy #5 obstructive sleep apnea Comments and recommendations: I believe the patient's history is most compatible with CHF or pleural effusions. I think pneumonia is less likely. He has not had any fevers chills or sweats. He's had no sputum production. It would be unusual for pneumonia to give such prominent bilateral effusions. I believe he would benefit from a thoracentesis. Unfortunately he received his Coumadin today in the early evening. Dr. Atkins will be on tomorrow. He will assess if he feels it is appropriate to do a thoracentesis at that time. The patient is receiving furosemide bilaterally. It doesn't seem to be helping. Consideration could be given to IV furosemide. I will defer this to the hospitalist team in the cardiology team. I have no objection to covering the patient for now with antibiotics although I think it is less likely this is pneumonia. He is receiving a moderate amount of methylprednisolone. I suspect his shortness of breath will not be very steroid responsive in light of the fact it seems this is cardiac related. With his diabetes I would lower the steroid dose. I told the patient that he was welcome to use his own mask from home for the BiPAP. He feels much more comfortable with his nasal pillows mask he has. Thank you for asking me to assist in his care.
[2016-10-20] MEDS: DILTIAZEM HCL 30 MG TAB PO SCH (20:46)
[2016-10-20] MEDS: GABAPENTIN 100 MG CAP PO SCH (20:47)
[2016-10-21] VITALS (11 sets, daily range): BP systolic 107–143; BP diastolic 64–84; PULSE 79–93; TEMP 35.5–36.7; O2SAT 90–96
[2016-10-21] MEDS: DOXYCYCLINE IV 100 MG in DEXTROSE 5% 100ML 100 ML IV SCH ×2 (04:41→16:01)
[2016-10-21] MEDS: METHYLPREDNISOLONE IV 20 MG in SYRINGE 0 ML IV SCH ×3 (04:42→11:25)
[2016-10-21] MEDS: LEVOTHYROXINE 150 MCG TAB PO SCH (05:47)
[2016-10-21] MEDS: DUTASTERIDE 0.5MG PO SCH ×2 (07:48)
[2016-10-21] MEDS: LORATADINE 10 MG TAB PO SCH (07:49)
[2016-10-21] MEDS: DILTIAZEM HCL 30 MG TAB PO SCH ×3 (07:49→21:15)
[2016-10-21] MEDS: VENLAFAXINE HCL XR 150 MG CAPXR PO SCH (07:50)
[2016-10-21] MEDS: TAMSULOSIN HCL 0.4 MG CAP PO SCH (07:50)
[2016-10-21] MEDS: MAGNESIUM OXIDE 400 MG TAB PO SCH (07:51)
[2016-10-21] MEDS: AMLODIPINE BESYLATE 5 MG TAB PO SCH (07:51)
[2016-10-21] MEDS: FUROSEMIDE 40 MG TAB PO SCH (07:51)
[2016-10-21] MEDS: LISINOPRIL 20 MG TAB PO SCH (07:52)
[2016-10-21 07:58] LABS: INR 2.2 (0.9-1.1); PROTHROMBIN TIME (PATIENT) 24.2 SECONDS (9.0-12.0)
--- NOTE | 2016-10-21 09:01 | ECHOCARDIOGRAM REPORT ---
*NOTICE TO RECEIVING [facility] This information is strictly Confidential and protected under [place] law. [place] law prohibits you from making any further disclosure of this information unless further disclosure is expressly permitted by the written consent of the person to whom it pertains or is authorized by law. A general authorization for the release of medical or other information is not sufficient for this purpose. Hospital accepts no responsibility if the information is made available to any other person, INCLUDING THE PATIENT. Interpretation Summary * Name: MADONNA LOPEZ Study Date: 10/20/2016 12:40 PM BP: 138/86 mmHg * Patient Location: C.2T\S\S236\S\1 HR: 118 * : 1935 (M/d/yyyy) Gender: Male Height: 70 in * Age: 81 yrs Ethnicity: [place] Weight: 251 lb * Ordering Physician: Jazzy Juares * Referring Physician: Diana Yeager * Performed By: Erni Briggs RDCS * * Reason For Study: CHF * BSA: 2.3 m2 * -- Conclusions -- * No significant change compared to study of 08/19/15. * Normal LV chamber size with mild concentric LVH. * Mildly reduced LV systolic function with abnormal septal wall motion consistent with LBBB morphology. * Grade III diastolic dysfunction. * Aortic valve sclerosis moderate, without significant aortic valvular stenosis. * Mild mitral regurgitation. * Mild left atrial enlargement. Procedure Details * A complete two-dimensional transthoracic echocardiogram was performed (2D, M-mode, Doppler and color flow Doppler). Left Ventricle * The left ventricle is normal in size. * There is mild concentric left ventricular hypertrophy. * Ejection Fraction = 45-50%. * Left ventricular systolic function is mildly reduced. * Septal motion is consistent with conduction abnormality. Right Ventricle * The right ventricular cavity size is normal (basal dimension <4.2 cm in right ventricular apical 4-chamber view). * The right ventricular systolic function is normal as assessed by tricuspid annular plane systolic excursion (TAPSE) (normal >1.5 cm). Atria * The left atrium is mildly dilated. * Right atrial size is normal. * No ASD detected; PFO is not assessed. Mitral Valve * The mitral valve anatomy is normal. * There is no mitral valve stenosis. * There is mild mitral regurgitation. Tricuspid Valve * The tricuspid valve is normal in structure and function. Aortic Valve * Aortic valve sclerosis moderate, without significant aortic valvular stenosis. * The aortic valve is not well visualized. * There is no significant aortic regurgitation. Pulmonic Valve * The pulmonary valve is not well seen, but the Doppler examination is normal without significant regurgitation or stenosis. Great Vessels * The aortic root and proximal ascending aorta are normal sized. Pericardium/Pleural * There is no pericardial effusion. Left Ventricular Diastolic Function * Diastolic dysfunction, Grade III, consistent with marked congestive heart failure. MMode 2D Measurements and Calculations IVSd 1.3 cm LVIDd 5.1 cm LVIDs 3.9 cm LVPWd 1.4 cm IVS/LVPW 0.95 FS 23.4 % EDV(Teich) 123.5 ml ESV(Teich) 66.0 ml EF(Teich) 46.6 % EDV(cubed) 132.3 ml ESV(cubed) 59.4 ml EF(cubed) 55.1 % LV mass(C)d 282.9 grams LV mass(C)dI 123.0 grams/m\S\2 SV(Teich) 57.6 ml SI(Teich) 25.0 ml/m\S\2 SV(cubed) 72.9 ml SI(cubed) 31.7 ml/m\S\2 Ao root diam 3.3 cm Ao root area 8.8 cm\S\2 ACS 1.9 cm LA dimension 4.3 cm asc Aorta Diam 3.5 cm LA/Ao 1.3 LVOT diam 2.0 cm LVOT area 3.1 cm\S\2 LVAd ap4 42.8 cm\S\2 LVLd ap4 9.0 cm EDV(MOD-sp4) 165.5 ml EDV(sp4-el) 172.1 ml LVAs ap4 28.8 cm\S\2 LVLs ap4 8.1 cm ESV(MOD-sp4) 86.6 ml ESV(sp4-el) 86.8 ml EF(MOD-sp4) 47.7 % EF(sp4-el) 49.6 % LVAd ap2 41.6 cm\S\2 LVLd ap2 9.2 cm EDV(MOD-sp2) 156.8 ml EDV(sp2-el) 158.9 ml LVAs ap2 28.8 cm\S\2 LVLs ap2 7.8 cm ESV(MOD-sp2) 86.7 ml ESV(sp2-el) 90.6 ml EF(MOD-sp2) 44.7 % EF(sp2-el) 43.0 % LVLd %diff 2.0 % EDV(MOD-bp) 161.5 ml LVLs %diff -4.52 % ESV(MOD-bp) 86.5 ml EF(MOD-bp) 46.4 % SV(MOD-sp4) 78.9 ml SI(MOD-sp4) 34.3 ml/m\S\2 SV(MOD-sp2) 70.2 ml SI(MOD-sp2) 30.5 ml/m\S\2 SV(MOD-bp) 75.0 ml SI(MOD-bp) 32.6 ml/m\S\2 SV(sp4-el) 85.3 ml SI(sp4-el) 37.1 ml/m\S\2 SV(sp2-el) 68.3 ml SI(sp2-el) 29.7 ml/m\S\2 Doppler Measurements and Calculations MV E max maya 114.5 cm/sec MV dec time 0.15 sec Ao V2 max 142.5 cm/sec Ao max PG 8.1 mmHg Ao max PG (full) 4.3 mmHg SIXTO(V,A) 2.1 cm\S\2 SIXTO(V,D) 2.1 cm\S\2 LV V1 max PG 3.8 mmHg LV V1 max 97.3 cm/sec MR max maya 412.6 cm/sec MR max PG 68.1 mmHg MR mean maya 294.9 cm/sec MR mean PG 40.4 mmHg MR VTI 115.3 cm PA V2 max 85.5 cm/sec PA max PG 2.9 mmHg PA acc slope 430.5 cm/sec\S\2 PA acc time 0.11 sec PI end-d maya 175.1 cm/sec TR max maya 247.0 cm/sec PA pr(Accel) 28.3 mmHg
[2016-10-21 09:50] LABS: HEMATOCRIT 37.4 % (42-52); MEAN CELL VOLUME 85.8 fL (80-100); MEAN CORPUSCULAR HEMOGLOBIN 27.1 pg (25-34); MEAN CORPUSCULAR HGB CONC 31.6 g/dl (32-36); MEAN PLATELET VOLUME 9.8 fL (7.4-10.4); PLATELET COUNT 363 K/uL (130-400); RED BLOOD COUNT 4.36 M/uL (4.7-6.1)
[2016-10-21 09:59] LABS: URINE APPEARANCE CLEAR (CLEAR); URINE BILIRUBIN NEG (NEG); URINE COLOR YELLOW; URINE NITRITE NEG (NEG); URINE SPECIFIC GRAVITY 1.023 (1.000-1.030); UROBILINOGEN NEG (NEG)
[2016-10-21 10:22] LABS: MANUAL MICROSCOPIC REQUIRED? NO; REVIEW REQ? NO
[2016-10-21 10:27] LABS: BUN/CREATININE RATIO 26.4 (10-20); CREATININE 1.4 mg/dl (0.60-1.40); POTASSIUM 3.8 mmol/L (3.5-5.1)
--- NOTE | 2016-10-21 12:02 | Procedure Note ---
Procedure Note Date of Service Oct 21, 2016. Procedure Note Procedures: Right sided Thoracentesis Consent: obtained via the patient and placed into the chart Pre-Procedural Dx: Right-sided pleural effusion/CHF Post-Procedural Dx: Right-sided pleural effusion/CHF Analgesia: 8cc of 1% Liquid Lidocaine Procedure: The patient was placed in an upright position and thoracic US was used to select a spot for the procedure. A spot along the posterior axillary line was marked in the 7th intercostal space. The patient was then draped and prepped in a sterile fashion. A modified Seldinger technique was then used for catheter placement. Flowing this approximately 1400cc of tannish pleural fluid was removed. The patient was then cleaned and placed at a 60 degree angle in the bed were the US was used to evaluate for possible pneumothorax. The US showed good lung sliding and [place] signs. EBL: none Complications: none
[2016-10-21 13:28] LABS: PLEURAL FLUID TOTAL PROTEIN 1.3 g/dl
--- NOTE | 2016-10-21 13:34 | Cardiology Follow-Up ---
Subjective Subjective Date of Service: Oct 21, 2016. Pt evaluation today including: conversation w/ patient, physical exam, chart review, lab review, review of studies, conversation w/ staff consultant, review of inpatient medication list Additional Details: Pt seen and examined, states that he feels well s/p thoracentesis. SOB improved. Denies cp, palpitations, lightheadedness or dizziness. 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 Review of Systems ENT: + problem reported Respiratory: + shortness of breath, + dyspnea on exertion, No see HPI, No cough , No sputum, No wheezing, No dyspnea at rest, No hemoptysis, No problem reported Cardiac: No see HPI, No chest pain, No orthopnea, No PND, No edema, No claudication, No palpitations, No problem reported Musculoskeletal: + joint pain Objective Vital Signs Last Vital Signs Documentation Date Time Temp Pulse Resp B/P (MAP) Pulse Ox O2 Delivery O2 Flow Rate FiO2 10/21/16 12:12 36.7 92 20 138/77 (97) 91 Nasal Cannula 6.0 10/21/16 08:10 60 Physical Exam: General Appearance: WD/WN, no apparent distress Eyes: bilateral eyes normal inspection, bilateral eyes PERRL, bilateral eyes EOMI ENT: normal ENT inspection, hearing grossly normal, pharynx normal Neck: supple, no adenopathy, thyroid normal, no JVD Respiratory/Chest: normal breath sounds, no respiratory distress, no accessory muscle use, + decreased breath sounds (on left) Cardiovascular: no edema, no JVD, no murmur, + irregularly irregular Abdomen: normal bowel sounds, non tender, soft Extremities: normal inspection, no pedal edema, no calf tenderness Neurologic/Psychiatric: training representative II-XII nml as tested, no motor/sensory deficits, alert, normal mood/affect, oriented x 3 Skin: normal color, warm/dry, no rash Lymphatic: no adenopathy Assessment and Plan 1. pleural effusions s/p thoracentesis on R possible for L as well will back off diuretic now, will change to lasix 40mg po daily 2. afib rate controlled on amio previously, concern for possible toxicity, amio now stopped
[2016-10-21 14:02] LABS: PLEURAL FLUID APPEARANCE HAZY; PLEURAL FLUID COLOR YELLOW; PLEURAL FLUID SOURCE RIGHT LUNG; PLEURAL FLUID WBC (A) 235 /uL
[2016-10-21] MEDS: CEFTRIAXONE SOD INJ 1 GM in DEXTROSE 5% ADD-VANTAGE 50ML 50 ML IV SCH (14:03)
[2016-10-21] MEDS: WARFARIN SOD 7.5 MG TAB PO SCH (16:02)
--- NOTE | 2016-10-21 16:15 | Progress Note ---
Medicine Progress Note Date & Time of Visit: Oct 21, 2016 at 16:14. Subjective Patient underwent thoracentesis of the right side today 1.8L fluid was removed, states he overall is feeling less SOB. No overnight events noted. No other complaints at this time. LE edema is improving as well. His was at the bedside and was updated. Tolerating PO. Has been ambulating only in room with assistance. Objective Last 8 Hrs Date Time Temp Pulse Resp B/P (MAP) Pulse Ox O2 Delivery O2 Flow Rate FiO2 10/21/16 15:41 36.5 79 18 125/84 (98) 90 Oxymask 10.0 10/21/16 12:12 36.7 92 20 138/77 (97) 91 Nasal Cannula 6.0 10/21/16 12:00 95 Oxymask 10.0 Physical Exam: GENERAL: Patient is in no acute distress. HEENT: No acute trauma, normocephalic, mucous membranes moist, no nasal congestion, no scleral icterus. NECK: No stridor, trachea is midline. LUNGS: Diminished bilaterally, no wheeze, no rhonchi, breath sounds equal. HEART: Without murmurs gallops or rubs, irregularly irregular ABDOMEN: Soft, nontender, bowel sounds positive EXTREMITIES: No cyanosis or edema NEUROLOGIC: Oriented x 3, no acute motor or sensory deficits, no focal weakness. SKIN: No rash, no jaundice, no diaphoresis. Laboratory Results: Last 24 Hours Test 10/20/16 16:23 10/20/16 21:00 10/21/16 00:00 10/21/16 06:37 Bedside Glucose 208 mg/dl 160 mg/dl 132 mg/dl Urine Color YELLOW Urine Appearance CLEAR Urine pH 5.0 Urine Specific [place] 1.023 Urine Protein NEG Urine Glucose (UA) NEG Urine Ketones NEG Urine Occult Blood NEG Urine Nitrite NEG Urine Bilirubin NEG Urine Urobilinogen NEG Urine Leukocyte Esterase NEG Test 10/21/16 07:22 10/21/16 09:16 10/21/16 11:18 10/21/16 12:49 Prothrombin Time 24.2 SECONDS Prothromb Time International Ratio 2.2 White Blood Count 17.90 K/uL Red Blood Count 4.36 M/uL Hemoglobin 11.8 g/dL Hematocrit 37.4 % Mean Corpuscular Volume 85.8 fL Mean Corpuscular Hemoglobin 27.1 pg Mean Corpuscular Hemoglobin Concent 31.6 g/dl RDW Standard Deviation 54.1 fL RDW Coefficient of Variation 17.3 % Platelet Count 363 K/uL Mean Platelet Volume 9.8 fL Sodium Level 144 mmol/L Potassium Level 3.8 mmol/L Chloride Level 109 mmol/L Carbon Dioxide Level 28 mmol/L Anion Gap 7.0 mmol/L Blood Urea Nitrogen 37 mg/dl Creatinine 1.40 mg/dl Est Creatinine Clear Calc Drug Dose 49.8 ml/min Estimated GFR () 53.8 Estimated GFR (Non- 46.5 BUN/Creatinine Ratio 26.4 Random Glucose 145 mg/dl Calcium Level 9.0 mg/dl Bedside Glucose 121 mg/dl Pleural Fluid Source RIGHT LUNG Pleural Fluid Color YELLOW Pleural Fluid Appearance HAZY Pleural Fluid WBC 235 /uL Pleural Fluid RBC 3000 /uL Pleural Fluid Polynuclear WBCs % 14.0 % Pleural Fluid Mononuclear WBCs % 86.0 % Pleural Fluid Total Protein 1.3 g/dl Pleural Fluid LDH 63 IU Pleural Fluid Glucose 129 mg/dl Pleural Fluid Amylase 8 U/L Date/Time Source Procedure Growth Status 10/21/16 12:49 Pleural Fluid (Thoracentesis) Right Acid Fast Stain Pending Received 10/21/16 12:49 Pleural Fluid (Thoracentesis) Right Mycobacterial Culture Pending Received 10/21/16 12:49 Pleural Fluid (Thoracentesis) Right Gram Stain - Final Resulted 10/21/16 12:49 Pleural Fluid (Thoracentesis) Right Bacterial Culture Pending Resulted Assessment & Plan ACUTE HYPOXIC RESPIRATORY FAILURE: -likely multifactorial due to acute on chronic systolic CHF, and less likely asthma exacerbation and CAP -patient with hypoxia, tachycardia, tachypnea -CTA chest negative for PE -CXR and CT chest indicate possible bibasilar atelectasis with moderate effusions and possible consolidation/pneumonia -presented with increasing SOB for 5 days, minimal non productive cough; increased B/L LE edema. -in the ER patient was hypoxic to the 60s on RA, 85% on NRB mask, required bipap with improvement in saturations; used bipap overnight and most of today was on an oxygen mask -ABG WNL -BNP elevated, had leukocytosis, procalcitonin and lactate negative -sepsis criteria met with leukocytosis, tachycardia, and tachypnea -continued on Lasix 40mg PO daily, was initially on IV BID -continue daily weights, strict I's & O's -was given Levaquin and Rocephin in ED; continued on Rocephin and Doxycycline day#3 -blood cultures negative -for possible asthma exacerbation, patient was started on IV steroids and nebs; steroids being weaned -Cardio consulted, appreciate recs -Pulm consulted, appreciate input, patient had a right sided thoracentesis yielding 1.8 L drained ELEVATED TROPONIN: -likely due to acute CHF -no reports of chest pain, EKG shows an old LBBB, no acute ST changes -cardiac enzymes were slightly elevated but leveled off -TTE: EF 45-50%, per report no significant change from prior ATRIAL FIBRILLATION: -rate was uncontrolled on presentation -slightly improving since treatment with diuretics, diltiazem, and bipap -rhythm controlled on amiodarone previously, but given persistent hypoxia, amiodarone was stopped by Cardio for possibility of pulm amio tox -restarted on diltiazem -INR now therapeutic 2.2 -Coumadin dose was increased, will adjust per INR PROLONGED QTc: -avoid QTC prolonging agents DIARRHEA: -check stool culture and c diff are negative HTN -BP controlled -continued on diltiazem, lisinopril, and amlodipine HYPOTHYROIDISM: -continue levothyroxine DM Type II: -diet controlled -HbA1c 5.9 08/2016 -monitor BSG, expect rise with the use of IV steroids -SSI if needed BPH: -continue flomax DVT PROPHYLAXIS: -on Coumadin Current Inpatient Medications: Current Inpatient Medications Medications (Trade) Dose Ordered Sig/Kimberly Route Start Time Stop Time Status Last Admin Dose Admin Ioversol (Optiray 320) 125 ml UD PRN IV 10/19/16 11:45 10/23/16 11:44 Acetaminophen (Tylenol Tab) 650 mg Q4H PRN PO 10/19/16 12:15 11/18/16 12:14 10/20/16 23:07 650 MG Doxycycline Hyclate 100 mg/ Dextrose 110 ml @ 50 mls/hr Q12@0400,1600 IV 10/19/16 16:00 10/26/16 15:59 10/21/16 16:01 50 MLS/HR Ceftriaxone Sodium 1 gm/ Dextrose 50 ml @ 100 mls/hr DAILY@1200 IV 10/20/16 12:00 10/25/16 12:29 10/21/16 14:03 100 MLS/HR Gabapentin (Neurontin Cap) 200 mg HS PO 10/19/16 21:00 11/18/16 20:59 10/20/16 20:47 200 MG Levothyroxine Sodium (Synthroid Tab) 150 mcg DAILYBB PO 10/20/16 06:00 11/19/16 05:59 10/21/16 05:47 150 MCG Lisinopril (Zestril Tab) 20 mg DAILY PO 10/20/16 09:00 11/19/16 08:59 10/21/16 07:52 20 MG Loratadine (Claritin Tab) 10 mg DAILY PO 10/20/16 09:00 11/19/16 08:59 10/21/16 07:49 10 MG Magnesium Oxide (Mag-Ox Tab) 400 mg QAM PO 10/20/16 09:00 11/19/16 08:59 10/21/16 07:51 400 MG Tamsulosin HCl (Flomax Cap) 0.4 mg QAM PO 10/20/16 09:00 11/19/16 08:59 10/21/16 07:50 0.4 MG Venlafaxine HCl (effeXOR EXTENDED REL CAP) 150 mg DAILY PO 10/20/16 09:00 11/19/16 08:59 10/21/16 07:50 150 MG Amlodipine Besylate (Norvasc Tab) 10 mg DAILY PO 10/20/16 09:00 11/19/16 08:59 10/21/16 07:51 10 MG Levalbuterol (Xopenex 0.63 Mg/ 3 Ml Neb) 0.63 mg Q6R PRN INH 10/19/16 13:15 11/18/16 13:14 Metoprolol Tartrate (Lopressor Iv) 2.5 mg Q6 PRN IV 10/19/16 13:15 11/18/16 13:14 Promethazine HCl 12.5 mg/Sodium Chloride 50.5 ml @ 204 mls/hr Q6H PRN IV 10/19/16 13:45 11/18/16 13:44 Dutasteride (Avodart) 0.5 mg DAILY PO 10/20/16 09:00 11/19/16 08:59 10/21/16 07:48 0.5 MG Diltiazem HCl (Cardizem Tab) 30 mg TID PO 10/20/16 21:00 11/19/16 20:59 10/21/16 14:03 30 MG Warfarin Sodium (Coumadin Tab) 7.5 mg DAILY@16 PO 10/20/16 16:00 11/19/16 15:59 10/21/16 16:02 7.5 MG Methylprednisolone Sodium Succinate 20 mg/Syringe 0.32 ml @ 1.5 mls/min Q8H IV 10/21/16 03:00 11/18/16 18:59 10/21/16 04:42 1.5 MLS/MIN Furosemide (Lasix Tab) 40 mg DAILY PO 10/22/16 09:00 11/19/16 16:59
--- NOTE | 2016-10-21 16:47 | Pulmonology Progress Note ---
Pulmonary Progress Note Date of Service Oct 21, 2016. Attending Dr. Atkins Subjective Patient continues to note dyspnea on exertion Objective Patient using accessory muscles having difficulty completing full sentences Assessment & Plan 81-year-old gentleman in diastolic heart failure: #1 bilateral pleural effusions: Patient and have agreed to undergo right- sided thoracentesis. We note dramatic relief will perform left-sided thoracentesis on the following day. #2 steroids: The patient has no history of COPD or other chronic lung disease. At this time we'll discontinue's IV steroids as noted to increased water retention. Data Medications: Current Inpatient Medications Medications (Trade) Dose Ordered Sig/Kimberly Route Start Time Stop Time Status Last Admin Dose Admin Ioversol (Optiray 320) 125 ml UD PRN IV 10/19/16 11:45 10/23/16 11:44 Acetaminophen (Tylenol Tab) 650 mg Q4H PRN PO 10/19/16 12:15 11/18/16 12:14 10/20/16 23:07 650 MG Doxycycline Hyclate 100 mg/ Dextrose 110 ml @ 50 mls/hr Q12@0400,1600 IV 10/19/16 16:00 10/26/16 15:59 10/21/16 16:01 50 MLS/HR Ceftriaxone Sodium 1 gm/ Dextrose 50 ml @ 100 mls/hr DAILY@1200 IV 10/20/16 12:00 10/25/16 12:29 10/21/16 14:03 100 MLS/HR Gabapentin (Neurontin Cap) 200 mg HS PO 10/19/16 21:00 11/18/16 20:59 10/20/16 20:47 200 MG Levothyroxine Sodium (Synthroid Tab) 150 mcg DAILYBB PO 10/20/16 06:00 11/19/16 05:59 10/21/16 05:47 150 MCG Lisinopril (Zestril Tab) 20 mg DAILY PO 10/20/16 09:00 11/19/16 08:59 10/21/16 07:52 20 MG Loratadine (Claritin Tab) 10 mg DAILY PO 10/20/16 09:00 11/19/16 08:59 10/21/16 07:49 10 MG Magnesium Oxide (Mag-Ox Tab) 400 mg QAM PO 10/20/16 09:00 11/19/16 08:59 10/21/16 07:51 400 MG Tamsulosin HCl (Flomax Cap) 0.4 mg QAM PO 10/20/16 09:00 11/19/16 08:59 10/21/16 07:50 0.4 MG Venlafaxine HCl (effeXOR EXTENDED REL CAP) 150 mg DAILY PO 10/20/16 09:00 11/19/16 08:59 10/21/16 07:50 150 MG Amlodipine Besylate (Norvasc Tab) 10 mg DAILY PO 10/20/16 09:00 11/19/16 08:59 10/21/16 07:51 10 MG Levalbuterol (Xopenex 0.63 Mg/ 3 Ml Neb) 0.63 mg Q6R PRN INH 10/19/16 13:15 11/18/16 13:14 Metoprolol Tartrate (Lopressor Iv) 2.5 mg Q6 PRN IV 10/19/16 13:15 11/18/16 13:14 Promethazine HCl 12.5 mg/Sodium Chloride 50.5 ml @ 204 mls/hr Q6H PRN IV 10/19/16 13:45 11/18/16 13:44 Dutasteride (Avodart) 0.5 mg DAILY PO 10/20/16 09:00 11/19/16 08:59 10/21/16 07:48 0.5 MG Diltiazem HCl (Cardizem Tab) 30 mg TID PO 10/20/16 21:00 11/19/16 20:59 10/21/16 14:03 30 MG Warfarin Sodium (Coumadin Tab) 7.5 mg DAILY@16 PO 10/20/16 16:00 11/19/16 15:59 10/21/16 16:02 7.5 MG Methylprednisolone Sodium Succinate 20 mg/Syringe 0.32 ml @ 1.5 mls/min Q8H IV 10/21/16 03:00 11/18/16 18:59 10/21/16 04:42 1.5 MLS/MIN Furosemide (Lasix Tab) 40 mg DAILY PO 10/22/16 09:00 11/19/16 16:59 I & O: 24-Hour Column 10/22/16 08:00 Intake Total 175 ml Output Total 625 ml Balance -450 ml Vital Signs: Date Time Temp Pulse Resp B/P (MAP) Pulse Ox O2 Delivery O2 Flow Rate FiO2 10/21/16 16:00 92 Oxymask 10.0 10/21/16 15:41 36.5 79 18 125/84 (98) 90 Oxymask 10.0 10/21/16 12:12 36.7 92 20 138/77 (97) 91 Nasal Cannula 6.0 10/21/16 12:00 95 Oxymask 10.0 10/21/16 08:10 35.5 87 24 143/82 (102) 94 BiPAP 60 10/21/16 08:00 94 Oxymask 12.0 10/21/16 04:00 90 Oxymask 12.0 10/21/16 03:14 36.3 81 20 114/72 (86) 96 BiPAP 10/21/16 00:00 36.5 93 20 114/72 (86) 94 BiPAP 60 10/21/16 00:00 90 Oxymask 12.0 10/20/16 20:00 90 Oxymask 12.0 10/20/16 20:00 36.4 102 20 125/80 (95) 90 Oxymask 15.0 Laboratory Results: Last 24 Hours Test 10/20/16 21:00 10/21/16 00:00 10/21/16 06:37 10/21/16 07:22 Bedside Glucose 160 mg/dl 132 mg/dl Urine Color YELLOW Urine Appearance CLEAR Urine pH 5.0 Urine Specific [place] 1.023 Urine Protein NEG Urine Glucose (UA) NEG Urine Ketones NEG Urine Occult Blood NEG Urine Nitrite NEG Urine Bilirubin NEG Urine Urobilinogen NEG Urine Leukocyte Esterase NEG Prothrombin Time 24.2 SECONDS Prothromb Time International Ratio 2.2 Test 10/21/16 09:16 10/21/16 11:18 10/21/16 12:49 10/21/16 16:20 White Blood Count 17.90 K/uL Red Blood Count 4.36 M/uL Hemoglobin 11.8 g/dL Hematocrit 37.4 % Mean Corpuscular Volume 85.8 fL Mean Corpuscular Hemoglobin 27.1 pg Mean Corpuscular Hemoglobin Concent 31.6 g/dl RDW Standard Deviation 54.1 fL RDW Coefficient of Variation 17.3 % Platelet Count 363 K/uL Mean Platelet Volume 9.8 fL Sodium Level 144 mmol/L Potassium Level 3.8 mmol/L Chloride Level 109 mmol/L Carbon Dioxide Level 28 mmol/L Anion Gap 7.0 mmol/L Blood Urea Nitrogen 37 mg/dl Creatinine 1.40 mg/dl Est Creatinine Clear Calc Drug Dose 49.8 ml/min Estimated GFR () 53.8 Estimated GFR (Non- 46.5 BUN/Creatinine Ratio 26.4 Random Glucose 145 mg/dl Calcium Level 9.0 mg/dl Bedside Glucose 121 mg/dl 114 mg/dl Pleural Fluid Source RIGHT LUNG Pleural Fluid Color YELLOW Pleural Fluid Appearance HAZY Pleural Fluid WBC 235 /uL Pleural Fluid RBC 3000 /uL Pleural Fluid Polynuclear WBCs % 14.0 % Pleural Fluid Mononuclear WBCs % 86.0 % Pleural Fluid Total Protein 1.3 g/dl Pleural Fluid LDH 63 IU Pleural Fluid Glucose 129 mg/dl Pleural Fluid Amylase 8 U/L
[2016-10-21] MEDS: GABAPENTIN 100 MG CAP PO SCH (21:15)
[2016-10-21] MEDS: ACETAMINOPHEN 325 MG TAB PO PRN (21:57)
[2016-10-22] VITALS (14 sets, daily range): BP systolic 108–118; BP diastolic 64–74; PULSE 73–96; TEMP 36.3–37; O2SAT 91–98
[2016-10-22] MEDS: DOXYCYCLINE IV 100 MG in DEXTROSE 5% 100ML 100 ML IV SCH ×2 (03:19→15:41)
[2016-10-22] MEDS: LEVOTHYROXINE 150 MCG TAB PO SCH (03:20)
[2016-10-22 06:56] LABS: INR 2.9 (0.9-1.1); PROTHROMBIN TIME (PATIENT) 32.9 SECONDS (9.0-12.0)
[2016-10-22 07:16] LABS: BUN/CREATININE RATIO 28.5 (10-20); CALCIUM 8.5 mg/dl (8.5-10.1); CREATININE 1.3 mg/dl (0.60-1.40); POTASSIUM 3.6 mmol/L (3.5-5.1)
[2016-10-22] MEDS: DUTASTERIDE 0.5MG PO SCH ×2 (08:37)
[2016-10-22] MEDS: DILTIAZEM HCL 30 MG TAB PO SCH ×3 (08:38→20:52)
[2016-10-22] MEDS: LORATADINE 10 MG TAB PO SCH (08:38)
[2016-10-22] MEDS: VENLAFAXINE HCL XR 150 MG CAPXR PO SCH (08:38)
[2016-10-22] MEDS: TAMSULOSIN HCL 0.4 MG CAP PO SCH (08:38)
[2016-10-22] MEDS: MAGNESIUM OXIDE 400 MG TAB PO SCH (08:39)
[2016-10-22] MEDS: AMLODIPINE BESYLATE 5 MG TAB PO SCH (08:39)
[2016-10-22] MEDS: LISINOPRIL 20 MG TAB PO SCH (08:39)
[2016-10-22] MEDS: FUROSEMIDE 40 MG TAB PO SCH (11:52)
[2016-10-22] MEDS: CEFTRIAXONE SOD INJ 1 GM in DEXTROSE 5% ADD-VANTAGE 50ML 50 ML IV SCH (11:52)
--- NOTE | 2016-10-22 15:27 | DIAGNOSTIC IMAGING REPORT ---
SINGLE VIEW CHEST CLINICAL HISTORY: Status post thoracentesis. FINDINGS: An AP, portable, upright chest radiograph is compared to study dated 10/20/2016 and correlated with chest CT dated 10/19/2016. The examination is degraded by portable technique and patient rotation. The heart is enlarged and there is atherosclerotic calcification of the thoracic aorta. Pulmonary vascular congestion has improved from previous. There are layering pleural effusions with bibasilar consolidation. No pneumothorax is seen. The skeletal structures are osteopenic. Degenerative change is noted throughout the thoracic spine. Fusion hardware is seen in the upper lumbar region. IMPRESSION: 1. No pneumothorax is identified post procedure. 2. Pleural effusions with bibasilar consolidation. 3. Cardiomegaly. Pulmonary vascular congestion has improved from 10/20/2016. Electronically signed by: Destin Jackson M.D. 10/22/2016 3:25 PM Dictated Date/Time: 10/22/2016 3:24 PM
[2016-10-22 15:38] LABS: PLEURAL FLUID TOTAL PROTEIN 1.4 g/dl
[2016-10-22] MEDS: WARFARIN SOD 7.5 MG TAB PO SCH (15:41)
[2016-10-22 15:55] LABS: PLEURAL FLUID APPEARANCE CLOUDY; PLEURAL FLUID COLOR AMBER; PLEURAL FLUID MONONUC RELAT 83.9 %; PLEURAL FLUID POLYNUC 16.1 %; PLEURAL FLUID SOURCE LEFT LUNG; PLEURAL FLUID WBC (A) 336 /uL
--- NOTE | 2016-10-22 18:04 | Cardiology Follow-Up ---
Subjective Subjective Date of Service: Oct 22, 2016. Pt evaluation today including: conversation w/ patient, physical exam, chart review, lab review, review of studies, review of inpatient medication list Additional Details: Pt seen and examined, oob in chair with family. States that he feels fine, sob greatly improved. Denies cp, sob, palpitations, lightheadedness or dizziness. Tele reviewed: afib rate controlled. 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 Review of Systems ENT: + problem reported Respiratory: + shortness of breath, + dyspnea on exertion, No see HPI, No cough , No sputum, No wheezing, No dyspnea at rest, No hemoptysis, No problem reported Cardiac: No see HPI, No chest pain, No orthopnea, No PND, No edema, No claudication, No palpitations, No problem reported Musculoskeletal: + joint pain Objective Vital Signs Last Vital Signs Documentation Date Time Temp Pulse Resp B/P (MAP) Pulse Ox O2 Delivery O2 Flow Rate FiO2 10/22/16 16:00 95 Nasal Cannula 6.0 10/22/16 15:43 36.3 90 20 117/70 (86) 10/22/16 07:58 60 Physical Exam: General Appearance: WD/WN, no apparent distress Eyes: bilateral eyes normal inspection, bilateral eyes PERRL, bilateral eyes EOMI ENT: normal ENT inspection, hearing grossly normal, pharynx normal Neck: supple, no adenopathy, thyroid normal, no JVD Respiratory/Chest: normal breath sounds, no respiratory distress, no accessory muscle use, + decreased breath sounds (on left) Cardiovascular: no edema, no JVD, no murmur, + irregularly irregular Abdomen: normal bowel sounds, non tender, soft Extremities: normal inspection, no pedal edema, no calf tenderness Neurologic/Psychiatric: academic program specialist II-XII nml as tested, no motor/sensory deficits, alert, normal mood/affect, oriented x 3 Skin: normal color, warm/dry, no rash Lymphatic: no adenopathy Assessment and Plan 1. pleural effusions s/p thoracentesis on R possible for L as well will back off diuretic now, will change to lasix 40mg po daily 2. afib rate controlled on amio previously, concern for possible toxicity, amio now stopped will follow rate control strategy INR therapeutic
--- NOTE | 2016-10-22 19:00 | Progress Note ---
Medicine Progress Note Date & Time of Visit: Oct 22, 2016 at 19:00. Subjective Patient doing well, had a left sided thoracentesis today and feels it easier to take a deep breath. No overnight events noted. Tolerating PO without difficulty. Patient breathing well with a nasal cannula. No other complaints at this time. LE edema present but overall better. Objective Last 8 Hrs Date Time Temp Pulse Resp B/P (MAP) Pulse Ox O2 Delivery O2 Flow Rate FiO2 10/22/16 16:00 95 Nasal Cannula 6.0 10/22/16 15:43 36.3 90 20 117/70 (86) 91 Nasal Cannula 6.0 10/22/16 12:00 94 Nasal Cannula 6.0 10/22/16 11:41 36.5 88 20 118/69 (85) 94 Room Air Physical Exam: GENERAL: Patient is in no acute distress. HEENT: No acute trauma, normocephalic, mucous membranes moist, no nasal congestion, no scleral icterus. NECK: No stridor, trachea is midline. LUNGS: CTA bilaterally, no wheeze, no rhonchi, breath sounds equal. HEART: Without murmurs gallops or rubs, irregularly irregular ABDOMEN: Soft, nontender, bowel sounds positive EXTREMITIES: No cyanosis; B/L LE edema NEUROLOGIC: Oriented x 3, no acute motor or sensory deficits, no focal weakness. SKIN: No rash, no jaundice, no diaphoresis. Laboratory Results: Last 24 Hours Test 10/21/16 20:27 10/22/16 00:00 10/22/16 06:03 10/22/16 06:38 Bedside Glucose 96 mg/dl 91 mg/dl Pleural Fluid Source LEFT LUNG Pleural Fluid Color LYNNE Pleural Fluid Appearance CLOUDY Pleural Fluid WBC 336 /uL Pleural Fluid RBC 9000 /uL Pleural Fluid pH 7.43 Pleural Fluid Polynuclear WBCs % 16.1 % Pleural Fluid Mononuclear WBCs % 83.9 % Pleural Fluid Total Protein 1.4 g/dl Pleural Fluid LDH 62 IU Pleural Fluid Glucose 105 mg/dl Pleural Fluid Amylase 8 U/L Prothrombin Time 32.9 SECONDS Prothromb Time International Ratio 2.9 Sodium Level 145 mmol/L Potassium Level 3.6 mmol/L Chloride Level 109 mmol/L Carbon Dioxide Level 31 mmol/L Anion Gap 5.0 mmol/L Blood Urea Nitrogen 37 mg/dl Creatinine 1.30 mg/dl Est Creatinine Clear Calc Drug Dose 53.7 ml/min Estimated GFR () 58.9 Estimated GFR (Non- 50.8 BUN/Creatinine Ratio 28.5 Random Glucose 85 mg/dl Calcium Level 8.5 mg/dl Test 10/22/16 11:05 10/22/16 16:36 Bedside Glucose 91 mg/dl 105 mg/dl Date/Time Source Procedure Growth Status 10/22/16 14:00 Sputum Expectorated Sputum Gram Stain Pending Darcy Batch 10/22/16 14:00 Sputum Expectorated Sputum Sputum Culture Pending Darcy Batch 10/22/16 00:00 Pleural Fluid (Thoracentesis) Left Acid Fast Stain Pending Received 10/22/16 00:00 Pleural Fluid (Thoracentesis) Left Mycobacterial Culture Pending Received 10/22/16 00:00 Pleural Fluid (Thoracentesis) Left Gram Stain - Final Resulted 10/22/16 00:00 Pleural Fluid (Thoracentesis) Left Bacterial Culture Pending Resulted Assessment & Plan ACUTE HYPOXIC RESPIRATORY FAILURE: -likely multifactorial due to acute on chronic systolic CHF, and less likely asthma exacerbation and CAP -patient with hypoxia, tachycardia, tachypnea -CTA chest negative for PE -CXR and CT chest indicate possible bibasilar atelectasis with moderate effusions and possible consolidation/pneumonia -presented with increasing SOB for 5 days, minimal non productive cough; increased B/L LE edema. -in the ER patient was hypoxic to the 60s on RA, 85% on NRB mask, required bipap with improvement in saturations; used bipap overnight and most of today was on an oxygen mask -ABG WNL -BNP elevated, had leukocytosis, procalcitonin and lactate negative -sepsis criteria met with leukocytosis, tachycardia, and tachypnea -continued on Lasix 40mg PO daily, was initially on IV BID -continue daily weights, strict I's & O's -was given Levaquin and Rocephin in ED; continued on Rocephin and Doxycycline day #4 -blood cultures negative -for possible asthma exacerbation, patient was started on IV steroids and nebs; steroids off -Cardio consulted, appreciate recs -Pulm consulted, appreciate input, patient had a right sided thoracentesis yielding 1.8 L and today had a left sided thoracentesis ELEVATED TROPONIN: -likely due to acute CHF -no reports of chest pain, EKG shows an old LBBB, no acute ST changes -cardiac enzymes were slightly elevated but leveled off -TTE: EF 45-50%, per report no significant change from prior ATRIAL FIBRILLATION: -rate was uncontrolled on presentation -slightly improving since treatment with diuretics, diltiazem, and bipap -rhythm controlled on amiodarone previously, but given persistent hypoxia, amiodarone was stopped by Cardio for possibility of pulm amio tox -restarted on diltiazem -INR therapeutic 2.9 -Coumadin dose was increased to 7.5, will adjust per INR and decrease dose back to home dose PROLONGED QTc: -avoid QTC prolonging agents DIARRHEA: -check stool culture and c diff are negative HTN -BP controlled -continued on diltiazem, lisinopril, and amlodipine HYPOTHYROIDISM: -continue levothyroxine DM Type II: -diet controlled -HbA1c: 5.9% 08/2016 -monitor BSG, expect rise with the use of IV steroids -SSI if needed BPH: -continue flomax DVT PROPHYLAXIS: -on Coumadin Current Inpatient Medications: Current Inpatient Medications Medications (Trade) Dose Ordered Sig/Kimberly Route Start Time Stop Time Status Last Admin Dose Admin Ioversol (Optiray 320) 125 ml UD PRN IV 10/19/16 11:45 10/23/16 11:44 Acetaminophen (Tylenol Tab) 650 mg Q4H PRN PO 10/19/16 12:15 11/18/16 12:14 10/21/16 21:57 650 MG Doxycycline Hyclate 100 mg/ Dextrose 110 ml @ 50 mls/hr Q12@0400,1600 IV 10/19/16 16:00 10/26/16 15:59 10/22/16 15:41 50 MLS/HR Ceftriaxone Sodium 1 gm/ Dextrose 50 ml @ 100 mls/hr DAILY@1200 IV 10/20/16 12:00 10/25/16 12:29 10/22/16 11:52 100 MLS/HR Gabapentin (Neurontin Cap) 200 mg HS PO 10/19/16 21:00 11/18/16 20:59 10/21/16 21:15 200 MG Levothyroxine Sodium (Synthroid Tab) 150 mcg DAILYBB PO 10/20/16 06:00 11/19/16 05:59 10/22/16 03:20 150 MCG Lisinopril (Zestril Tab) 20 mg DAILY PO 10/20/16 09:00 11/19/16 08:59 10/22/16 08:39 20 MG Loratadine (Claritin Tab) 10 mg DAILY PO 10/20/16 09:00 11/19/16 08:59 10/22/16 08:38 10 MG Magnesium Oxide (Mag-Ox Tab) 400 mg QAM PO 10/20/16 09:00 11/19/16 08:59 10/22/16 08:39 400 MG Tamsulosin HCl (Flomax Cap) 0.4 mg QAM PO 10/20/16 09:00 11/19/16 08:59 10/22/16 08:38 0.4 MG Venlafaxine HCl (effeXOR EXTENDED REL CAP) 150 mg DAILY PO 10/20/16 09:00 11/19/16 08:59 10/22/16 08:38 150 MG Amlodipine Besylate (Norvasc Tab) 10 mg DAILY PO 10/20/16 09:00 11/19/16 08:59 10/22/16 08:39 10 MG Levalbuterol (Xopenex 0.63 Mg/ 3 Ml Neb) 0.63 mg Q6R PRN INH 10/19/16 13:15 11/18/16 13:14 Metoprolol Tartrate (Lopressor Iv) 2.5 mg Q6 PRN IV 10/19/16 13:15 11/18/16 13:14 Promethazine HCl 12.5 mg/Sodium Chloride 50.5 ml @ 204 mls/hr Q6H PRN IV 10/19/16 13:45 11/18/16 13:44 Dutasteride (Avodart) 0.5 mg DAILY PO 10/20/16 09:00 11/19/16 08:59 10/22/16 08:37 0.5 MG Diltiazem HCl (Cardizem Tab) 30 mg TID PO 10/20/16 21:00 11/19/16 20:59 10/22/16 14:48 30 MG Warfarin Sodium (Coumadin Tab) 7.5 mg DAILY@16 PO 10/20/16 16:00 11/19/16 15:59 10/22/16 15:41 7.5 MG Furosemide (Lasix Tab) 40 mg DAILY PO 10/22/16 09:00 11/19/16 16:59 10/22/16 11:52 40 MG
[2016-10-22] MEDS: GABAPENTIN 100 MG CAP PO SCH (20:51)
[2016-10-22] MEDS: ACETAMINOPHEN 325 MG TAB PO PRN (22:00)
[2016-10-23] VITALS (9 sets, daily range): BP systolic 105–144; BP diastolic 65–82; PULSE 53–97; TEMP 36.4–36.9; O2SAT 93–98
[2016-10-23] MEDS: LEVOTHYROXINE 150 MCG TAB PO SCH (03:46)
[2016-10-23] MEDS: DOXYCYCLINE IV 100 MG in DEXTROSE 5% 100ML 100 ML IV SCH ×2 (03:50→15:53)
[2016-10-23 07:07] LABS: INR 3.5 (0.9-1.1); PROTHROMBIN TIME (PATIENT) 39.9 SECONDS (9.0-12.0)
[2016-10-23 07:22] LABS: BUN/CREATININE RATIO 19.6 (10-20); CALCIUM 8.9 mg/dl (8.5-10.1); CREATININE 1.4 mg/dl (0.60-1.40); POTASSIUM 3.8 mmol/L (3.5-5.1)
--- NOTE | 2016-10-23 09:46 | Cardiology Follow-Up ---
Subjective General Date of Service: Oct 23, 2016. Chief Complaint: sob Pt evaluation today including: conversation w/ patient, physical exam, chart review, lab review, review of studies, review of inpatient medication list History of Present Illness Patient seen and examined. CPAP overnight Currently requiring 6 L/min via nasal cannula + Shortness of breath when laying on his left side last night Comfortable at rest currently. + Bilateral lower extremity edema. No chest pain. No overt palpitations. No abdominal bloating or scrotal edema. Telemetry: Atrial fibrillation with a left bundle branch block pattern. Rates range from 70 to 150 bpm. PVC's primarily in singles. No pauses. October 20, 2016 TTE Interpretation Summary: No significant change compared to study of 08/19/15. Normal LV chamber size with mild concentric LVH. Mildly reduced LV systolic function with abnormal septal wall motion consistent with LBBB morphology. Grade III diastolic dysfunction. Aortic valve sclerosis moderate, without significant aortic valvular stenosis. Mild mitral regurgitation. Mild left atrial enlargement. 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 Physical Exam Vital Signs Last Vital Signs Documentation Date Time Temp Pulse Resp B/P (MAP) Pulse Ox O2 Delivery O2 Flow Rate FiO2 10/23/16 07:34 36.6 78 20 124/67 (86) 98 Nasal Cannula 6.0 10/23/16 01:24 62 Physical Exam Constitutional: Level of Distress: acutely ill Psychiatric: Mental Status: active & alert Orientation: to time, to place, to person Memory: recent memory normal, remote memory normal Head: normocephalic ENMT: normal ENT inspection Neck: supple, pertinent finding (No overt JVD (examined in the bedside chair)) Lungs: Respiratory effort: dyspneic Auscultation: no wheezing, no rales/crackles, deminished air movement, decreased breath sounds, pertinent finding (Absent breath sounds 1[address] on the left) Cardiovascular: Heart Auscultation: no murmurs, no rubs, gallop, irregular rate rhythm Peripheral Pulses: Bruits: none appreciated Abdomen: Bowel Sounds: normal Inspection & Palpation: soft, distended Musculoskeletal: normal Extremities: no cyanosis, edema (2+ chronic indurated edema) Neurologic: Cranial Nerves: grossly intact Assessment and Plan Assessment and Plan Acute decompensated systolic and diastolic congestive heart failure signs and symptoms. In persistent atrial fibrillation. Grade III diastolic dysfunction Mild reduction in systolic function, EF 45-50%. Chronic left bundle branch block with QRS duration greater than 150 ms Atrial fibrillation Rates uncontrolled on presentation Mildly elevated rates observed over the last 24 hours Amiodarone discontinued due to concern for pulmonary toxicity. Plan is for rate control and anticoagulation Given mild reduction in LV systolic function as well as concurrent use of amlodipine recommend switching Diltiazem to evidence based beta-heidi therapy Bilateral pleural effusions Secondary to all of the above Status post right thoracentesis on October 21, 2016 Status post left thoracentesis on October 22, 2016 Elevated troponin [place] to be secondary to the acute CHF exacerbation No chest pain. EKG with a chronic LBBB. TTE: EF 45-50%, no significant change from prior TTE from 08/2015 Hypertension Controlled See above Continue lisinopril and amlodipine for now. RECOMMENDATIONS/PLAN: Discontinue Diltiazem Start Toprol XL, 25 mg twice a day. Benefits, use, and risks discussed. Continue chronic Coumadin anticoagulation. INR goal 2.0 to 3.0 Continue FREDI inhibition Continue oral furosemide. Add spironolactone if hypokalemia observed. ? Steroids for the possible amiodarone induced pulmonary toxicity ? Consider reduction/discontinuation of Effexor. CARDIOLOGY ATTENDING ADDENDUM: The patient was seen and personally examined. Agree with Kumar Dove PA-C's findings and plans as documented above. with additions as noted below. S: patient sitting in bedside chair enjoying his evening meal, feels OK. Exam: 1-2+ LE edema Impression and plan as above. Laboratory Results Last 24 Hours Test 10/22/16 11:05 10/22/16 16:36 7/9/17 20:08 10/23/16 06:06 Bedside Glucose 91 mg/dl 105 mg/dl 110 mg/dl 99 mg/dl Test 10/23/16 06:08 Prothrombin Time 39.9 SECONDS Prothromb Time International Ratio 3.5 Sodium Level 143 mmol/L Potassium Level 3.8 mmol/L Chloride Level 106 mmol/L Carbon Dioxide Level 30 mmol/L Anion Gap 7.0 mmol/L Blood Urea Nitrogen 27 mg/dl Creatinine 1.40 mg/dl Est Creatinine Clear Calc Drug Dose 48.9 ml/min Estimated GFR () 53.8 Estimated GFR (Non- 46.5 BUN/Creatinine Ratio 19.6 Random Glucose 96 mg/dl Calcium Level 8.9 mg/dl
[2016-10-23] MEDS: DUTASTERIDE 0.5MG PO SCH ×2 (09:47)
[2016-10-23] MEDS: AMLODIPINE BESYLATE 5 MG TAB PO SCH (09:48)
[2016-10-23] MEDS: VENLAFAXINE HCL XR 150 MG CAPXR PO SCH (09:48)
[2016-10-23] MEDS: LORATADINE 10 MG TAB PO SCH (09:48)
[2016-10-23] MEDS: LISINOPRIL 20 MG TAB PO SCH (09:48)
[2016-10-23] MEDS: FUROSEMIDE 40 MG TAB PO SCH (09:48)
[2016-10-23] MEDS: TAMSULOSIN HCL 0.4 MG CAP PO SCH (09:48)
[2016-10-23] MEDS: MAGNESIUM OXIDE 400 MG TAB PO SCH (09:48)
[2016-10-23] MEDS: DILTIAZEM HCL 30 MG TAB PO SCH (09:48)
[2016-10-23] MEDS: CEFTRIAXONE SOD INJ 1 GM in DEXTROSE 5% ADD-VANTAGE 50ML 50 ML IV SCH (11:48)
--- NOTE | 2016-10-23 19:07 | Progress Note ---
Medicine Progress Note Date & Time of Visit: Oct 23, 2016 at 19:07. Subjective Patient reports his breathing is greatly improved; he is able to take full breaths and not feel SOB. Oxygen is being weaned. No overnight events noted. Tolerating PO without difficulty. Has been working with therapy and ambulating with assistance. LE edema still present but improving per patient. Objective Last 8 Hrs Date Time Temp Pulse Resp B/P (MAP) Pulse Ox O2 Delivery O2 Flow Rate FiO2 10/23/16 16:00 Nasal Cannula 2.0 10/23/16 15:22 36.4 81 18 127/82 (97) 93 Nasal Cannula 2.0 Humidified Oxygen 10/23/16 12:00 Nasal Cannula 2.0 10/23/16 11:39 36.4 96 19 132/74 (93) 95 Nasal Cannula 3.0 Physical Exam: GENERAL: Patient is in no acute distress. HEENT: No acute trauma, normocephalic, mucous membranes moist, no nasal congestion, no scleral icterus. NECK: No stridor, trachea is midline. LUNGS: CTA bilaterally, diminished bases, no wheeze, no rhonchi, breath sounds equal. HEART: Without murmurs gallops or rubs, irregularly irregular ABDOMEN: Soft, nontender, bowel sounds positive EXTREMITIES: No cyanosis; B/L LE edema NEUROLOGIC: Oriented x 3, no acute motor or sensory deficits, no focal weakness. SKIN: No rash, no jaundice, no diaphoresis. Laboratory Results: Last 24 Hours Test 10/22/16 20:08 10/23/16 06:06 10/23/16 06:08 10/23/16 11:14 Bedside Glucose 110 mg/dl 99 mg/dl 116 mg/dl Prothrombin Time 39.9 SECONDS Prothromb Time International Ratio 3.5 Sodium Level 143 mmol/L Potassium Level 3.8 mmol/L Chloride Level 106 mmol/L Carbon Dioxide Level 30 mmol/L Anion Gap 7.0 mmol/L Blood Urea Nitrogen 27 mg/dl Creatinine 1.40 mg/dl Est Creatinine Clear Calc Drug Dose 48.9 ml/min Estimated GFR () 53.8 Estimated GFR (Non- 46.5 BUN/Creatinine Ratio 19.6 Random Glucose 96 mg/dl Calcium Level 8.9 mg/dl Test 10/23/16 16:02 Bedside Glucose 141 mg/dl Assessment & Plan ACUTE HYPOXIC RESPIRATORY FAILURE: -likely multifactorial due to acute on chronic systolic CHF, and less likely asthma exacerbation and CAP -patient with hypoxia, tachycardia, tachypnea -CTA chest negative for PE -CXR and CT chest indicate possible bibasilar atelectasis with moderate effusions and possible consolidation/pneumonia -presented with increasing SOB for 5 days, minimal non productive cough; increased B/L LE edema. -in the ER patient was hypoxic to the 60s on RA, 85% on NRB mask, required bipap with improvement in saturations; has now been weaned to oxygen via NC -ABG WNL -BNP elevated, had leukocytosis, procalcitonin and lactate negative -sepsis criteria met with leukocytosis, tachycardia, and tachypnea -continued on Lasix 40mg PO daily, was initially on IV BID -continue daily weights, strict I's & O's -was given Levaquin and Rocephin in ED; continued on Rocephin and Doxycycline day #5/7 -blood cultures negative -for possible asthma exacerbation, patient was started on IV steroids and nebs; steroids off per Pulm -Cardio consulted, appreciate recs -Pulm consulted, appreciate input, patient had a right sided thoracentesis yielding 1.8 L and had a left sided thoracentesis yesterday SLIGHTLY ELEVATED TROPONIN: -likely due to acute CHF -no reports of chest pain, EKG shows an old LBBB, no acute ST changes -cardiac enzymes were slightly elevated but leveled off -TTE: EF 45-50%, per report no significant change from prior ATRIAL FIBRILLATION: -rate was uncontrolled on presentation -slightly improving since treatment with diuretics, diltiazem, and bipap -rhythm controlled on amiodarone previously, but given persistent hypoxia, amiodarone was stopped by Cardio for possibility of pulm amio tox -restarted on diltiazem, now off and switched to lopressor -INR therapeutic 3.5; hold coumadin today and resume tomorrow -Coumadin dose was increased to 7.5, will adjust per INR and decrease dose back to home dose PROLONGED QTc: -avoid QTC prolonging agents DIARRHEA: -check stool culture and c diff are negative HTN -BP controlled -continued on lisinopril, and amlodipine -diltiazem stopped and switched to lopressor by Cardio HYPOTHYROIDISM: -continue levothyroxine DM Type II: -diet controlled -HbA1c: 5.9% 08/2016 -monitor BSG -SSI if needed BPH: -continue flomax DVT PROPHYLAXIS: -on Coumadin Current Inpatient Medications: Current Inpatient Medications Medications (Trade) Dose Ordered Sig/Kimberly Route Start Time Stop Time Status Last Admin Dose Admin Acetaminophen (Tylenol Tab) 650 mg Q4H PRN PO 10/19/16 12:15 11/18/16 12:14 10/22/16 22:00 650 MG Doxycycline Hyclate 100 mg/ Dextrose 110 ml @ 50 mls/hr Q12@0400,1600 IV 10/19/16 16:00 10/26/16 15:59 10/23/16 15:53 50 MLS/HR Ceftriaxone Sodium 1 gm/ Dextrose 50 ml @ 100 mls/hr DAILY@1200 IV 10/20/16 12:00 10/25/16 12:29 10/23/16 11:48 100 MLS/HR Gabapentin (Neurontin Cap) 200 mg HS PO 10/19/16 21:00 11/18/16 20:59 10/22/16 20:51 200 MG Levothyroxine Sodium (Synthroid Tab) 150 mcg DAILYBB PO 10/20/16 06:00 11/19/16 05:59 10/23/16 03:46 150 MCG Lisinopril (Zestril Tab) 20 mg DAILY PO 10/20/16 09:00 11/19/16 08:59 10/23/16 09:48 20 MG Loratadine (Claritin Tab) 10 mg DAILY PO 10/20/16 09:00 11/19/16 08:59 10/23/16 09:48 10 MG Magnesium Oxide (Mag-Ox Tab) 400 mg QAM PO 10/20/16 09:00 11/19/16 08:59 10/23/16 09:48 400 MG Tamsulosin HCl (Flomax Cap) 0.4 mg QAM PO 10/20/16 09:00 11/19/16 08:59 10/23/16 09:48 0.4 MG Venlafaxine HCl (effeXOR EXTENDED REL CAP) 150 mg DAILY PO 10/20/16 09:00 11/19/16 08:59 10/23/16 09:48 150 MG Amlodipine Besylate (Norvasc Tab) 10 mg DAILY PO 10/20/16 09:00 11/19/16 08:59 10/23/16 09:48 10 MG Levalbuterol (Xopenex 0.63 Mg/ 3 Ml Neb) 0.63 mg Q6R PRN INH 10/19/16 13:15 11/18/16 13:14 Metoprolol Tartrate (Lopressor Iv) 2.5 mg Q6 PRN IV 10/19/16 13:15 11/18/16 13:14 Promethazine HCl 12.5 mg/Sodium Chloride 50.5 ml @ 204 mls/hr Q6H PRN IV 10/19/16 13:45 11/18/16 13:44 Dutasteride (Avodart) 0.5 mg DAILY PO 10/20/16 09:00 11/19/16 08:59 10/23/16 09:47 0.5 MG Furosemide (Lasix Tab) 40 mg DAILY PO 10/22/16 09:00 11/19/16 16:59 10/23/16 09:48 40 MG Warfarin Sodium (Coumadin Tab) 2.5 mg DAILY@16 PO 10/24/16 16:00 11/23/16 15:59 Metoprolol Succinate (Toprol Xl Tab) 25 mg BID PO 10/23/16 21:00 11/22/16 20:59
[2016-10-23] MEDS: ACETAMINOPHEN 325 MG TAB PO PRN (21:10)
[2016-10-23] MEDS: GABAPENTIN 100 MG CAP PO SCH (21:10)
[2016-10-23] MEDS: METOPROLOL SUCC 25MG EXT REL TAB PO SCH (21:11)
[2016-10-24] VITALS (7 sets, daily range): BP systolic 99–123; BP diastolic 63–77; PULSE 78–98; TEMP 36.6–37; O2SAT 90–96
[2016-10-24] MEDS: DOXYCYCLINE IV 100 MG in DEXTROSE 5% 100ML 100 ML IV SCH ×2 (05:09→15:34)
[2016-10-24] MEDS: LEVOTHYROXINE 150 MCG TAB PO SCH (05:09)
[2016-10-24 07:38] LABS: PROTHROMBIN TIME (PATIENT) 44.2 SECONDS (9.0-12.0)
[2016-10-24 07:41] LABS: INR 3.9 (0.9-1.1)
[2016-10-24] MEDS: AMLODIPINE BESYLATE 5 MG TAB PO SCH (07:59)
[2016-10-24 08:00] LABS: BUN/CREATININE RATIO 16.9 (10-20); CALCIUM 8.8 mg/dl (8.5-10.1); CREATININE 1.2 mg/dl (0.60-1.40)
[2016-10-24] MEDS: MAGNESIUM OXIDE 400 MG TAB PO SCH (08:00)
[2016-10-24] MEDS: TAMSULOSIN HCL 0.4 MG CAP PO SCH (08:00)
[2016-10-24] MEDS: LISINOPRIL 20 MG TAB PO SCH (08:00)
[2016-10-24] MEDS: FUROSEMIDE 40 MG TAB PO SCH (08:00)
[2016-10-24] MEDS: LORATADINE 10 MG TAB PO SCH (08:00)
[2016-10-24] MEDS: METOPROLOL SUCC 25MG EXT REL TAB PO SCH ×2 (08:00→21:01)
[2016-10-24] MEDS: DUTASTERIDE 0.5MG PO SCH ×2 (08:00)
[2016-10-24] MEDS: VENLAFAXINE HCL XR 150 MG CAPXR PO SCH (08:00)
--- NOTE | 2016-10-24 10:08 | Cardiology Follow-Up ---
Subjective General Date of Service: Oct 24, 2016. Chief Complaint: sob Pt evaluation today including: conversation w/ patient, physical exam, chart review, lab review, review of studies, review of inpatient medication list History of Present Illness Patient seen and examined. Mildly improved dyspnea. Stable to mildly improved dyspnea. No chest pain. No palpitations. No abdominal bloating or scrotal edema. Telemetry: Atrial fibrillation with a left bundle branch block pattern. Currently rates are in the 70's. Ventricular rates are under better control. PVC 's primarily in singles. No pauses. October 20, 2016 TTE Interpretation Summary: No significant change compared to study of 08/19/15. Normal LV chamber size with mild concentric LVH. Mildly reduced LV systolic function with abnormal septal wall motion consistent with LBBB morphology. Grade III diastolic dysfunction. Aortic valve sclerosis moderate, without significant aortic valvular stenosis. Mild mitral regurgitation. Mild left atrial enlargement. 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 Physical Exam Vital Signs Last Vital Signs Documentation Date Time Temp Pulse Resp B/P (MAP) Pulse Ox O2 Delivery O2 Flow Rate FiO2 10/24/16 07:22 36.6 78 20 110/73 (85) 93 CPAP 10/24/16 04:00 28 10/23/16 23:50 2.0 Physical Exam Constitutional: Level of Distress: acutely ill Psychiatric: Mental Status: active & alert Orientation: to time, to place, to person Memory: recent memory normal, remote memory normal Head: normocephalic ENMT: normal ENT inspection Neck: supple, pertinent finding (No overt JVD (examined in the bedside chair)) Lungs: Respiratory effort: dyspneic Auscultation: no wheezing, no rales/crackles, deminished air movement, decreased breath sounds, pertinent finding (Improved aeration at the left base. ) Cardiovascular: Heart Auscultation: no murmurs, no rubs, gallop, irregular rate rhythm (70's ) Peripheral Pulses: Bruits: none appreciated Abdomen: Bowel Sounds: normal Inspection & Palpation: soft, distended Musculoskeletal: normal Extremities: no cyanosis, edema (1+ chronic indurated edema) Neurologic: Cranial Nerves: grossly intact Assessment and Plan Assessment and Plan Improving evidence of acute decompensated systolic and diastolic congestive heart failure Persistent atrial fibrillation. Grade III diastolic dysfunction Mild reduction in systolic function, EF 45-50%. Chronic left bundle branch block with QRS duration greater than 150 ms Atrial fibrillation Rates uncontrolled on presentation Amiodarone discontinued due to concern for pulmonary toxicity. Plan is for rate control and anticoagulation Given mild reduction in LV systolic function as well as concurrent use of amlodipine, Diltiazem was switched to Toprol XL in the PM of 10/23 Heart rates improved with the addition of Toprol, without increased pulmonary symptoms. Continue the current dose to Toprol XL 25 mg BID. Bilateral pleural effusions Secondary to all of the above Status post right thoracentesis on October 21, 2016 Status post left thoracentesis on October 22, 2016 Elevated troponin [place] to be secondary to the acute CHF exacerbation No chest pain. EKG with a chronic LBBB. TTE: EF 45-50%. No significant change from prior TTE from 08/2015 Hypertension Controlled See above Continue lisinopril and amlodipine for now. RECOMMENDATIONS/PLAN: Amiodarone and Diltiazem discontinued Toprol XL 25 mg twice a day added this admission Continue chronic Coumadin anticoagulation. INR goal 2.0 to 3.0 Continue FREDI inhibition Continue oral furosemide, 40 mg/day for now ? Steroids for the possible amiodarone induced pulmonary toxicity ? Consider reduction/discontinuation of Effexor. Increase activity as tolerated Recommend outpatient cardiology follow-up in 2 weeks (followed by Dr. Lugo, lives in the [place] area) CARDIOLOGY ATTENDING ADDENDUM: The patient was seen and personally examined. Agree with Kumar Dove PA-C's findings and plans as documented above with additions as noted below. Subjective: He is in good spirits, he feels a subtle improvement in his breathing, and a subtle improvement in his ankle edema. Exam: Irregular rhythm, 2+ bilateral lower extremity edema, but subjectively improved compared to yesterday, and also is improved per my physical exam assessment. Impression: As outlined above Plan: As outlined above. Laboratory Results Last 24 Hours Test 10/23/16 11:14 10/23/16 16:02 10/23/16 20:15 10/24/16 06:33 Bedside Glucose 116 mg/dl 141 mg/dl 104 mg/dl 100 mg/dl Test 10/24/16 06:44 Prothrombin Time 44.2 SECONDS Prothromb Time International Ratio 3.9 Sodium Level 146 mmol/L Potassium Level 4.0 mmol/L Chloride Level 108 mmol/L Carbon Dioxide Level 32 mmol/L Anion Gap 6.0 mmol/L Blood Urea Nitrogen 20 mg/dl Creatinine 1.20 mg/dl Est Creatinine Clear Calc Drug Dose 57.0 ml/min Estimated GFR () 64.9 Estimated GFR (Non- 56.0 BUN/Creatinine Ratio 16.9 Random Glucose 97 mg/dl Calcium Level 8.8 mg/dl
[2016-10-24] MEDS: CEFTRIAXONE SOD INJ 1 GM in DEXTROSE 5% ADD-VANTAGE 50ML 50 ML IV SCH (11:43)
[2016-10-24] MEDS: WARFARIN SOD 2.5 MG TAB PO SCH (15:29)
--- NOTE | 2016-10-24 19:07 | Progress Note ---
Internal Med Progress Note Date of Service: Oct 24, 2016. Provider Documentation: SUBJECTIVE: breathing much improved , denies of chest pain , SOB or orthopnea still requiring 2 L 02 supplement OBJECTIVE: Vital Signs-as noted below Exam: General-no sign of distress Eyes-sclera non icteric ENT-NAD Neck-no JVD Lungs-+ crackles at base Heart-regular Abdomen-soft, non tender Extremities-trace bilat lower ext edema Neuro-no focal deficit Lab data as noted below. ASSESSMENT & PLAN: Acute decompensated systolic and diastolic congestive heart failure Clinically improving with diuresis ECHO : Mild reduction in systolic function, EF 45-50%. appreciate input from Cardiology Continue oral furosemide, 40 mg/day cont on ACEI Bilateral pleural effusions Secondary to all of the above Status post right thoracentesis on October 21, 2016 Status post left thoracentesis on October 22, 2016 Atrial fibrillation Rates uncontrolled Amiodarone discontinued due to concern for pulmonary toxicity. cont Toprol XL 25 mg BID. Continue chronic Coumadin anticoagulation. INR goal 2.0 to 3.0 Elevated troponin secondary to the acute CHF exacerbation No chest pain. EKG with a chronic LBBB. TTE: EF 45-50%. No significant change from prior TTE from 08/2015 Hypertension lisinopril and amlodipine for now. DISPOSITION to home when medically stable Vital Signs: Date Time Temp Pulse Resp B/P (MAP) Pulse Ox O2 Delivery O2 Flow Rate FiO2 10/25/16 07:45 36.7 69 20 130/79 (96) 93 BiPAP 28 10/25/16 04:00 Nasal Cannula 2.0 28 BiPAP 10/25/16 03:45 36.7 69 16 95/51 (66) 94 BiPAP 10/25/16 00:00 Nasal Cannula 2.0 28 BiPAP 10/24/16 23:51 36.8 88 20 99/67 (78) 96 BiPAP 10/24/16 22:17 98 92 28 10/24/16 20:00 Nasal Cannula 2.0 10/24/16 19:57 36.9 82 22 119/77 (91) 90 Nasal Cannula 2.0 10/24/16 16:00 Nasal Cannula 2.0 10/24/16 15:35 37.0 84 20 113/69 (84) 91 Nasal Cannula 2.0 10/24/16 12:00 Nasal Cannula 2.0 10/24/16 11:52 36.8 80 20 109/63 (78) 95 Lab Results: Results Past 24 Hours Test 10/24/16 11:04 10/24/16 16:08 10/24/16 20:08 10/25/16 06:06 Range/Units Bedside Glucose 103 147 109 70-99 mg/dl Sodium Level 146 136-145 mmol/L Potassium Level 3.8 3.5-5.1 mmol/L Chloride Level 108 98-107 mmol/L Carbon Dioxide Level 31 21-32 mmol/L Anion Gap 7.0 3-11 mmol/L Blood Urea Nitrogen 20 7-18 mg/dl Creatinine 1.30 0.60-1.40 mg/dl Est Creatinine Clear Calc Drug Dose 52.3 ml/min Estimated GFR () 58.9 Estimated GFR (Non- 50.8 BUN/Creatinine Ratio 15.1 10-20 Random Glucose 93 70-99 mg/dl Calcium Level 8.4 8.5-10.1 mg/dl Test 10/25/16 06:52 10/25/16 10:28 Range/Units Bedside Glucose 100 70-99 mg/dl White Blood Count 12.10 4.8-10.8 K/uL Red Blood Count 4.75 4.7-6.1 M/uL Hemoglobin 12.7 14.0-18.0 g/dL Hematocrit 40.8 42-52 % Mean Corpuscular Volume 85.9 80-100 fL Mean Corpuscular Hemoglobin 26.7 25-34 pg Mean Corpuscular Hemoglobin Concent 31.1 32-36 g/dl RDW Standard Deviation 52.2 36.4-46.3 fL RDW Coefficient of Variation 16.5 11.5-14.5 % Platelet Count 313 130-400 K/uL Mean Platelet Volume 9.9 7.4-10.4 fL Prothrombin Time 28.7 9.0-12.0 SECONDS Prothromb Time International Ratio 2.6 0.9-1.1
[2016-10-24] MEDS: GABAPENTIN 100 MG CAP PO SCH (21:02)
[2016-10-24] MEDS: ACETAMINOPHEN 325 MG TAB PO PRN (23:35)
[2016-10-25] MEDS: DOXYCYCLINE IV 100 MG in DEXTROSE 5% 100ML 100 ML IV SCH (02:46)
[2016-10-25 03:45] VITALS: BP 95/51; PULSE 69; TEMP 36.7; O2SAT 94
[2016-10-25] MEDS: LEVOTHYROXINE 150 MCG TAB PO SCH (06:10)
[2016-10-25 06:56] LABS: BUN/CREATININE RATIO 15.1 (10-20); CALCIUM 8.4 mg/dl (8.5-10.1); CREATININE 1.3 mg/dl (0.60-1.40); POTASSIUM 3.8 mmol/L (3.5-5.1)
[2016-10-25 07:45] VITALS: BP 130/79; PULSE 69; TEMP 36.7; O2SAT 93
[2016-10-25] MEDS: AMLODIPINE BESYLATE 5 MG TAB PO SCH (08:54)
[2016-10-25] MEDS: LISINOPRIL 20 MG TAB PO SCH (08:54)
[2016-10-25] MEDS: MAGNESIUM OXIDE 400 MG TAB PO SCH (08:55)
[2016-10-25] MEDS: TAMSULOSIN HCL 0.4 MG CAP PO SCH (08:55)
[2016-10-25] MEDS: LORATADINE 10 MG TAB PO SCH (08:55)
[2016-10-25] MEDS: VENLAFAXINE HCL XR 150 MG CAPXR PO SCH (08:55)
[2016-10-25] MEDS: METOPROLOL SUCC 25MG EXT REL TAB PO SCH (08:55)
[2016-10-25] MEDS: DUTASTERIDE 0.5MG PO SCH ×2 (08:56)
[2016-10-25] MEDS: FUROSEMIDE 40 MG TAB PO SCH (08:56)
--- NOTE | 2016-10-25 09:26 | Cardiology Follow-Up ---
Subjective General Date of Service: Oct 25, 2016. Chief Complaint: sob Pt evaluation today including: conversation w/ patient, physical exam, chart review, lab review, review of studies, review of inpatient medication list History of Present Illness Patient seen and examined. Feels better. Notes walking to the double doors yesterday without difficulty No chest pain. No palpitations. No abdominal bloating or scrotal edema. Telemetry: Atrial fibrillation with a left bundle branch block pattern. Currently rates are in the 80's. Down to the low 40's on two occasions overnight. No significant pauses. October 20, 2016 TTE Interpretation Summary: No significant change compared to study of 08/19/15. Normal LV chamber size with mild concentric LVH. Mildly reduced LV systolic function with abnormal septal wall motion consistent with LBBB morphology. Grade III diastolic dysfunction. Aortic valve sclerosis moderate, without significant aortic valvular stenosis. Mild mitral regurgitation. Mild left atrial enlargement. 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 Physical Exam Vital Signs Last Vital Signs Documentation Date Time Temp Pulse Resp B/P (MAP) Pulse Ox O2 Delivery O2 Flow Rate FiO2 10/25/16 07:45 36.7 69 20 130/79 (96) 93 BiPAP 28 10/25/16 04:00 2.0 Physical Exam Constitutional: Level of Distress: acutely ill Psychiatric: Mental Status: active & alert Orientation: to time, to place, to person Memory: recent memory normal, remote memory normal Head: normocephalic ENMT: normal ENT inspection Neck: supple, pertinent finding (No overt JVD (examined in the bedside chair)) Lungs: Respiratory effort: dyspneic Auscultation: no wheezing, no rales/crackles, deminished air movement, decreased breath sounds, pertinent finding (Improved aeration at the left base. ) Cardiovascular: Heart Auscultation: no murmurs, no rubs, gallop, irregular rate rhythm (70's ) Peripheral Pulses: Bruits: none appreciated Abdomen: Bowel Sounds: normal Inspection & Palpation: soft, distended Musculoskeletal: normal Extremities: no cyanosis, edema (Minimal edema) Neurologic: Cranial Nerves: grossly intact Assessment and Plan Assessment and Plan Compensated systolic and diastolic congestive heart failure signs and symptoms. Grade III diastolic dysfunction Mild reduction in systolic function, EF 45-50%. Chronic left bundle branch block with QRS duration greater than 150 ms Persistent atrial fibrillation Rates uncontrolled on presentation Amiodarone discontinued due to concern for pulmonary toxicity. Plan: Rate control and chronic anticoagulation Diltiazem was switched to Toprol XL given mild reduction in LV systolic function as well as concurrent use of amlodipine, Bilateral pleural effusions Secondary to all of the above Status post right thoracentesis on October 21, 2016 Status post left thoracentesis on October 22, 2016 Elevated troponin [place] to be secondary to the acute CHF exacerbation No chest pain. EKG with a chronic LBBB. TTE: EF 45-50%. No significant change from prior TTE from 08/2015 Hypertension Mild hypotension observed overnight. RECOMMENDATIONS/PLAN: Amiodarone and Diltiazem discontinued this admission. Toprol XL 25 mg twice a day added this admission Continue chronic Coumadin anticoagulation (INR goal 2.0 to 3.0), Lisinopril, and oral furosemide - 40 mg/day If hypotension observed, decrease amlodipine initially. ? Steroids for the possible amiodarone induced pulmonary toxicity ? Consider reduction/discontinuation of Effexor. Increase activity as tolerated Outpatient cardiology follow-up in 1-2 weeks (followed by Dr. Lugo, lives in the [place] area) CARDIOLOGY ATTENDING ADDENDUM: The patient was seen and personally examined. Agree with Kumar Dove PA-C's findings and plans as documented above. Pt improved from a cardiac standpoint. Pt was assessed by the hospitalist service for acute left great toe gout, and is to be discharged on a course of prednisone. Stable for DC from cardiac standpoint. Laboratory Results Last 24 Hours Test 10/24/16 11:04 10/24/16 16:08 10/24/16 20:08 10/25/16 06:06 Bedside Glucose 103 mg/dl 147 mg/dl 109 mg/dl Sodium Level 146 mmol/L Potassium Level 3.8 mmol/L Chloride Level 108 mmol/L Carbon Dioxide Level 31 mmol/L Anion Gap 7.0 mmol/L Blood Urea Nitrogen 20 mg/dl Creatinine 1.30 mg/dl Est Creatinine Clear Calc Drug Dose 52.3 ml/min Estimated GFR () 58.9 Estimated GFR (Non- 50.8 BUN/Creatinine Ratio 15.1 Random Glucose 93 mg/dl Calcium Level 8.4 mg/dl Test 10/25/16 06:52 Bedside Glucose 100 mg/dl
[2016-10-25 10:45] LABS: HEMATOCRIT 40.8 % (42-52); MEAN CELL VOLUME 85.9 fL (80-100); MEAN CORPUSCULAR HEMOGLOBIN 26.7 pg (25-34); MEAN CORPUSCULAR HGB CONC 31.1 g/dl (32-36); MEAN PLATELET VOLUME 9.9 fL (7.4-10.4); PLATELET COUNT 313 K/uL (130-400); RED BLOOD COUNT 4.75 M/uL (4.7-6.1)
[2016-10-25 10:54] LABS: INR 2.6 (0.9-1.1); PROTHROMBIN TIME (PATIENT) 28.7 SECONDS (9.0-12.0)
[2016-10-25 10:59] VITALS: BP 106/55; PULSE 73; TEMP 36.5; O2SAT 94
[2016-10-25] MEDS: CEFTRIAXONE SOD INJ 1 GM in DEXTROSE 5% ADD-VANTAGE 50ML 50 ML IV SCH ×2 (12:00→13:24)
[2016-10-25] MEDS ORDERED: LSX40 PO (12:01)
--- NOTE | 2016-10-25 12:02 | Discharge Instructions ---
Discharge Instructions Date of Service Oct 25, 2016. Admission Reason for Admission: Acut Respratory Failure With Hypoxia Discharge Discharge Diagnosis / Problem: ACUTE CHF WITH COMBINED SYSTOLIC AND DIASTOLIC FAILURE /AFIB Discharge Goals Goal(s): Decrease discomfort, Improve function, Diagnostic testing, Therapeutic intervention Activity Recommendations Activity Limitations: resume your previous activity . Instructions / Follow-Up Instructions / Follow-Up HOSPITAL FOLLOWUP 10/31/2016 9:[address] Kita Santillan MD Internal Medicine [facility] CARDIOLOGY FOLLOW UP : 11/07/2016 1:00 PM Ramana Lugo DO Cardiology [facility] PULMONOLOGY FOLLOW UP WITH DR CASIANO , PLEASE CALL OFFICE TO SCHEDULE APPOINTMENT ANTICOAGULATION CLINIC FOLLOW UP : 10/26/2016 5:15 PM [facility] : LASIX DOSE INCREASED TO 40 MG DAILY ( WAS ON 20 MG DAILY ) TOPROL XL 25 MG TWICE DAILY DO NOT TAKE AMIODARONE AND DIGOXIN DO NOT TAKE EFFEXOR 150 MG DAILY REDUCE DOSE OF EFFEXOR 75 MG DAILY FOR 1 WEEK , THEN STOP ( IF NO SIDE EFFECT /DISCONTINUATION SYMPTOM NOTED ) START TAKING CYMBALTA 30 MG DAILY AT NIGHT FOR 1 WEEK INCREASE TO 60 MG DAILY AFTER A WEEK PLEASE NOTIFY YOUR FAMILY PHYSICIAN WITH CONCERN Call your Primary Care doctor if any of the following symptoms or problems start or get worse: * Shortness of breath or difficulty breathing * Wake up at night short of breath * Chest pain * Cough * Swelling of your hands, feet, or legs * More fatigued or tired with your normal activity * Palpitations - sudden fast heart beats WEIGHT * Weigh yourself every morning after using the bathroom. * Use the same scale. * Wear the same amount of clothing. * Write your weight down on a chart. * Call your Primary Care doctor if you gain more than 2-3 pounds in 1-2 days. MEDICATIONS * Use this discharge instruction sheet for medication instructions. * Take your medications at the time your doctor ordered. * Do not skip a dose of your medicines. * If you miss a dose of medicine, take it as soon as possible, but DO NOT DOUBLE A DOSE. * Read your medicine information when you get home. * Know all of the side effects of your medicine. If in doubt, ask your pharmacist * Call your Primary Care doctor's office if you have any side effects. * Be sure all of your doctors know what medicine and herbs you take (including cold, flu, and herbal medicine). Take the following with you to your follow-up doctor appointments: * Weight Chart * Medication List * List of questions Do not drink excessive alcohol, beer or wine. Current Hospital Diet Patient's current hospital diet: AHA Diet (Heart Healthy), Diabetes Type 2 Diet Discharge Diet Recommended Diet: AHA Diet (Heart Healthy), Diabetes Type 2 Diet Pending Studies Studies pending at discharge: no Medical Emergencies . Who to Call and When: Call 911 or go to the Emergency Room if: * If at any time you feel your situation is an emergency * You have tightness or pain in your chest that does not go away with rest or Nitroglycerin * You are very short of breath even with rest . Non-Emergent Contact Non-Emergency issues call your: Primary Care Provider . . "Provider Documentation" section prepared by Kaylah Meza. . VTE Core Measure Inpt VTE Proph given/why not?: Warfarin (Coumadin)
--- NOTE | 2016-10-25 12:46 | Progress Note ---
Internal Med Progress Note Date of Service: Oct 25, 2016. Provider Documentation: SUBJECTIVE: pt ambulated in hallway , 2 step exercise showed no desaturation on activity in room air no home 02 needed denies of any SOB or KENNEDY stable to be discharged home today OBJECTIVE: Vital Signs-as noted below Exam: General-no sign of distress Eyes-sclera non icteric ENT-NAD Neck-no JVD Lungs- -no crackles or wheeze noted Heart-regular Abdomen-soft, non tender Extremities-trace bilat lower ext edema ; painful red area on left great toe , swelling and warmth on left dorsal foot - Neuro-no focal deficit Lab data as noted below. ASSESSMENT & PLAN: Acute decompensated systolic and diastolic congestive heart failure clinically improved adequate diuresis , volume status has normalized no KENNEDY 2 step exercise done today shows no desaturation noted on activity ECHO : Mild reduction in systolic function, EF 45-50%. appreciate input from Cardiology Continue oral furosemide, 40 mg/day ( was on Lasix 20 mg daily ) cont on ACEI Bilateral pleural effusions Secondary to all of the above Status post right thoracentesis on October 21, 2016 Status post left thoracentesis on October 22, 2016 Atrial fibrillation Rates uncontrolled Amiodarone discontinued due to concern for pulmonary toxicity. will have out pt follow up with pulmonology for re evaluation and indication for steroid for possible amiodarone induced lung toxicity cont Toprol XL 25 mg BID. Continue chronic Coumadin anticoagulation. 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 -in winter times QTc prolong > 500 concern for Effexor causing cardiac arrhythmia Psych consulted for medication adjustment discussed with Psych -need to be on taper dose to wean off Effexor and possible start on Cymbalta -which dose not effect Qtc Appreciate Psych input Effexor will be reduced to 75 mg PO daily for 1 week then stop if no significant withdrawal signs noted start on low dose Cymbalta 30 mg daily for 1 week , then increase to 60 mg daily as Effexor is discontinued pt is asked to take Cymbalta at night time to separate dose between Effexor and Cymbalta to prevent serotonin syndrome instructed pt to contact family physician with any concern ACUTE GOUT ON LEFT GREAT TOE: Has pain and swelling on left foot uric acid elevated ~8 hx of recent gouty arthritis started on PO Prednisone taper Elevated troponin secondary to the acute CHF exacerbation No chest pain-no evidence of ACS EKG with a chronic LBBB. TTE: EF 45-50%. No significant change from prior TTE from 08/2015 Hypertension lisinopril and amlodipine DISPOSITION stable to be discharged home today Vital Signs: Date Time Temp Pulse Resp B/P (MAP) Pulse Ox O2 Delivery O2 Flow Rate FiO2 10/25/16 12:03 Room Air 10/25/16 10:59 36.5 73 18 106/55 (72) 94 Nasal Cannula 2.0 10/25/16 08:00 Nasal Cannula 2.0 BiPAP 10/25/16 07:45 36.7 69 20 130/79 (96) 93 BiPAP 28 10/25/16 04:00 Nasal Cannula 2.0 28 BiPAP 10/25/16 03:45 36.7 69 16 95/51 (66) 94 BiPAP 10/25/16 00:00 Nasal Cannula 2.0 28 BiPAP 10/24/16 23:51 36.8 88 20 99/67 (78) 96 BiPAP 10/24/16 22:17 98 92 28 10/24/16 20:00 Nasal Cannula 2.0 10/24/16 19:57 36.9 82 22 119/77 (91) 90 Nasal Cannula 2.0 10/24/16 16:00 Nasal Cannula 2.0 10/24/16 15:35 37.0 84 20 113/69 (84) 91 Nasal Cannula 2.0 Lab Results: Results Past 24 Hours Test 10/24/16 16:08 10/24/16 20:08 10/25/16 06:06 10/25/16 06:52 Range/Units Bedside Glucose 147 109 100 70-99 mg/dl Sodium Level 146 136-145 mmol/L Potassium Level 3.8 3.5-5.1 mmol/L Chloride Level 108 98-107 mmol/L Carbon Dioxide Level 31 21-32 mmol/L Anion Gap 7.0 3-11 mmol/L Blood Urea Nitrogen 20 7-18 mg/dl Creatinine 1.30 0.60-1.40 mg/dl Est Creatinine Clear Calc Drug Dose 52.3 ml/min Estimated GFR () 58.9 Estimated GFR (Non- 50.8 BUN/Creatinine Ratio 15.1 10-20 Random Glucose 93 70-99 mg/dl Uric Acid 8.5 2.6-7.2 mg/dl Calcium Level 8.4 8.5-10.1 mg/dl Test 10/25/16 10:28 10/25/16 11:00 Range/Units White Blood Count 12.10 4.8-10.8 K/uL Red Blood Count 4.75 4.7-6.1 M/uL Hemoglobin 12.7 14.0-18.0 g/dL Hematocrit 40.8 42-52 % Mean Corpuscular Volume 85.9 80-100 fL Mean Corpuscular Hemoglobin 26.7 25-34 pg Mean Corpuscular Hemoglobin Concent 31.1 32-36 g/dl RDW Standard Deviation 52.2 36.4-46.3 fL RDW Coefficient of Variation 16.5 11.5-14.5 % Platelet Count 313 130-400 K/uL Mean Platelet Volume 9.9 7.4-10.4 fL Prothrombin Time 28.7 9.0-12.0 SECONDS Prothromb Time International Ratio 2.6 0.9-1.1 Bedside Glucose 116 70-99 mg/dl
[2016-10-25] MEDS ORDERED: TPRSR25 PO (12:49)
[2016-10-25] MEDS ORDERED: CYM30 PO ×2 (13:30→13:31)
[2016-10-25] MEDS ORDERED: EFFSR75 PO (13:30)
[2016-10-25] MEDS ORDERED: DULO60CA44 PO (13:31)
--- NOTE | 2016-10-25 13:35 | Psychiatric Consultation ---
Consultation Date of Consultation Oct 25, 2016. Identifying Data Abraham Hanson is an 81-year-old man who presented to the hospital with complaints of shortness of breath. He was found to be hypoxic, with bilateral pleural effusions. In the course of treatmentit has been discovered that he has a prolonged QTc of 518 ms. We are consulted to evaluate medications for depression and weaning off of Effexor. Information is gathered from the patient , the electronic medical record, and considered to be reliable. Chief Complaint "I have SAD.". History of Present Illness Abrahma Jolly 81-year-old gentleman with multiple medical conditions including hypertension, A. fib, and recent diagnosis of bilateral pleural effusions. He has been treated here in the hospital successfully and is for planned discharge later today. I was contacted by his attending, Dr. Meza due to concerns for prolonged QTc of 518 ms. In talking with the patient, he says he has been on Effexor XR 150 mg daily for years, as prescribed by his PCP , Dr. Santillan, for seasonal affect of disorder. He has been relatively stable on this although still experiences some symptoms during the winter months. Usually he sleeps to excess during these times. He indicates that his depression is currently better as it usually is in the summer. He reports variable sleep patterns some nights having trouble falling asleep, as frequently as 3 or 4 times in a week. His appetite has been "too good" and his energy is "too bad". He denies any significant symptoms of chronic anxiety although he says he has "some". He denies that he has ever experienced thought disordered symptoms including auditory or visual hallucinations. Past Psychiatric History Current OP Treatment: no current treatment Prior OP Treatment: therapist Prior Psych Hospitalizations: none Access to a Gun: No Suicide Attempts: No Past Medication Trials None that he can remember Past Medical/Surgical History (1) History of basal cell carcinoma (2) Meniere's disease (3) BPH (benign prostatic hypertrophy) (4) Osteoarthritis (5) VINCENT (obstructive sleep apnea) (6) Bilateral hearing loss (7) Asthma (8) HTN (hypertension) (9) Dyslipidemia (10) CKD (chronic kidney disease) stage 3, GFR 30-59 ml/min (11) Diabetes mellitus type 2 in obese (12) Restless leg syndrome (13) Esophageal dysmotility (14) GERD (gastroesophageal reflux disease) (15) Atrial fibrillation (16) Hypothyroidism (17) Systolic CHF Allergies Allergies: Coded Allergies: Grass (Verified Allergy, Unknown, SEASONAL ALLERGIES, 10/19/16) Penicillins (Verified Allergy, Unknown, BLISTERS IN MOUTH, 10/19/16) Sympathomimetics (Verified Adverse Reaction, Unknown, Decongestants - DROWSINESS, DISORIENTED, FELT WORSE, 10/19/16) Home Medications Scheduled Amiodarone Hcl (Cordarone), 200 MG PO DAILY Amlodipine Besylate (Amlodipine Besylate), 10 MG PO DAILY Diltiazem Hcl (Diltiazem Hcl Er), 60 MG PO DAILY Dutasteride (Dutasteride), 0.5 MG PO DAILY Furosemide (Lasix), 1 TAB PO DAILY Furosemide (Furosemide), 40 MG PO DAILY Gabapentin (Gabapentin), 200 MG PO HS Levothyroxine Sodium (Levothyroxine Sodium), 1 TAB PO DAILY Lisinopril (Prinivil), 20 MG PO DAILY Loratadine (Claritin), 1 TAB PO DAILY Magnesium Oxide (Mag-Ox), 400 MG PO QAM Metoprolol Succinate (Metoprolol Succinate ER), 25 MG PO BID Polyethylene Glycol 3350 (Miralax), 17 GM PO DAILY Tamsulosin HCl (Tamsulosin HCl), 0.4 MG PO QAM Venlafaxine Hcl (Effexor Extended Rel), 150 MG PO DAILY Warfarin Sodium (Warfarin Sodium), 2.5 MG PO 5XWK Warfarin Sodium (Warfarin Sodium), 5 MG PO 2XWK Scheduled PRN Albuterol (Ventolin Hfa), 2 PUFFS INH Q4H PRN for SOB or Cough Family History Patient reports no known family medical history. 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 Relationship History: (458 years) Children: 2 adult children Spiritual Affiliation: [facility] Legal History: none Psychological Trauma History: Other (none) Review of Systems Constitutional: malaise Eyes: denies: no symptoms, as stated in HPI, eye pain, tearing, itching, redness, discharge, double vision, visual changes, blurred vision, photophobia, other ENT: reports: loss of hearing (has an implanted cochlear stimulator) Cardiovascular: reports: diaphoresis (prior to admission) Respiratory: reports: short of breath (with exertion) Gastrointestinal: denies no symptoms reported, denies see HPI, denies abdominal pain, denies constipation, denies diarrhea, denies nausea, denies vomiting, denies other Genitourinary - Male: denies: no symptoms, see HPI, rash, amenorrhea, penile itching, penile discharge, testicular pain, testicular swelling, impotence, other Musculoskeletal: denies no symptoms reported, denies see HPI, denies back pain , denies gout, denies joint pain, denies joint swelling, denies muscle pain, denies muscle stiffness, denies neck pain, denies other Integumentary: denies no symptoms reported, denies see HPI, denies change in color, denies change in hair/nails, denies dryness, denies lesions, denies lumps , denies rash, denies other Neurologic: denies: no symptoms, see HPI, headache, numbness, paresthesias, pre -existing deficit, seizure, tingling, tremors, general weakness, tics, focal weakness, vertigo, lethargy, memory loss, dizziness, other Endocrine: denies: no symptoms, as stated in HPI, cold intolerance, heat intolerance, hair changes, goiter, polydipsia, polyuria, skin changes, other Hematologic / Lymphatic: denies: no symptoms, as stated in HPI, abnormal clotting, adenopathy, anemia, easy bleeding, easy bruising, gums bleeding, petechiae, other Examination Physical Examination As per Dr. Meza Vital Signs Vital Signs Past 12 Hours Date Time Temp Pulse Resp B/P (MAP) Pulse Ox O2 Delivery O2 Flow Rate FiO2 10/25/16 12:03 Room Air 10/25/16 10:59 36.5 73 18 106/55 (72) 94 Nasal Cannula 2.0 10/25/16 08:00 Nasal Cannula 2.0 BiPAP 10/25/16 07:45 36.7 69 20 130/79 (96) 93 BiPAP 28 10/25/16 04:00 Nasal Cannula 2.0 28 BiPAP 10/25/16 03:45 36.7 69 16 95/51 (97) 70 BiPAP Laboratory Results Last 24 Hours Test 10/24/16 16:08 10/24/16 20:08 10/25/16 06:06 10/25/16 06:52 Bedside Glucose 147 mg/dl 109 mg/dl 100 mg/dl Sodium Level 146 mmol/L Potassium Level 3.8 mmol/L Chloride Level 108 mmol/L Carbon Dioxide Level 31 mmol/L Anion Gap 7.0 mmol/L Blood Urea Nitrogen 20 mg/dl Creatinine 1.30 mg/dl Est Creatinine Clear Calc Drug Dose 52.3 ml/min Estimated GFR () 58.9 Estimated GFR (Non- 50.8 BUN/Creatinine Ratio 15.1 Random Glucose 93 mg/dl Calcium Level 8.4 mg/dl Test 10/25/16 10:28 10/25/16 11:00 10/25/16 13:01 White Blood Count 12.10 K/uL Red Blood Count 4.75 M/uL Hemoglobin 12.7 g/dL Hematocrit 40.8 % Mean Corpuscular Volume 85.9 fL Mean Corpuscular Hemoglobin 26.7 pg Mean Corpuscular Hemoglobin Concent 31.1 g/dl RDW Standard Deviation 52.2 fL RDW Coefficient of Variation 16.5 % Platelet Count 313 K/uL Mean Platelet Volume 9.9 fL Prothrombin Time 28.7 SECONDS Prothromb Time International Ratio 2.6 Bedside Glucose 116 mg/dl Mental Examination During interview pt is: alert and oriented, cooperative Appearance: appropriately dressed, appropriately groomed Eye contact is: good Motor behavior is: no abnormal motor movements Speech: normal in rate, rhythm & volume Affect: euthymic Mood is: other (euthymic) Thought process: goal directed Thought content: reality based without delusions Suicidal thought are: denied Homicidal thoughts are: denied Hallucinations: denies auditory, denies visual Cognition: attention grossly intact, language grossly intact Intelligence estimated to be: average Insight: good Judgement: good Impression / Recommendations Impression 81-year-old gentleman admitted to the hospital with shortness of breath, hypoxia , in the setting of bilateral pleural effusions and CHF. We are consults it to assist in getting the patient off of Effexor due to a prolonged QTc. In view of the fact that the patient continues to struggle with seasonal affective disorder and has done well on a dual neurotransmitter medicine, we will cross him over to Cymbalta, which does not prolonged QTC. I have reviewed with the patient that he should drop his Effexor to 75 mg daily for one week while starting Cymbalta 30 mg daily for 1 week. If he does not have discontinuation symptoms (explained to both he and his ) then he should discontinue Effexor and increase Cymbalta to 60 mg daily. This can continue to be followed by his PCP, Dr. Santillan, but I will also provide him with my business card in the event he has trouble in the short-term in the crossover And have encouraged him to call me Inventory Assets Strengths: Supportive family, spiritual beliefs Risk Factors Assessment Male: Yes : Yes /single/: No Higher / Fall in social status: No Access to guns: No Health problems: Yes Mental Health Diagnoses: Yes Substance use disorders: No Previous attempt: No Previous psychiatric stay: No Hopelessness: No Smoker: No Protective Factors Assessment Advent beliefs: Yes : Yes Responsible for young children: No Employed: No Stable relationships: Yes Supportive family: Yes Recommendations (1) Seasonal affective disorder 10/25 - In view of QTc of 518 msec, recommend tapering off of Effexor to Cymbalta - Reduced Effexor XR to 75 mg. daily X 1 week while starting Cymbalta 30 mg. daily - If no discontinuation symptoms, then can DC Effexor and increase Cymbalta to 60 mg. daily - Will provide him my contact information in the event he has problems in the cross over. Has been reviewed with Dr. Anil Sevilla
[2016-10-25] MEDS ORDERED: PRED20TA2 PO (13:57)
[2016-10-25 14:02] VITALS: BP 106/55; PULSE 73; TEMP 36.5; O2SAT 94
--- NOTE | 2016-10-25 14:16 | Discharge Summary ---
Discharge Summary Date of Service Oct 25, 2016. Discharge Summary Admission Date: Oct 19, 2016 at 12:06 Discharge Date: Oct 25, 2016 Discharge Disposition: Home Principal Diagnosis: ACUTE CHF WITH COMBINED SYSTOLIC AND DIASTOLIC FAILURE /AFIB Procedures: Status post right thoracentesis on October 21, 2016 Status post left thoracentesis on October 22, 2016 ECHO : Mild reduction in systolic function, EF 45-50%. Consultations: CARDIOLOGY PULMONOLOGY Medication Reconciliation New Medications: Duloxetine Hcl (Cymbalta) 60 Mg Cap 1 CAP PO DAILY for 30 Days, #30 CAP 2 Refills take cymbalta 30 mg daily for 1 week then increase to 60 mg daily Prednisone (Prednisone Tab) 20 Mg Tab 0 PO DAILY, #7 TAB 2 TABS DAILY FOR 2 DAYS, THEN 1 TAB DAILY FOR 2 DAYS, THEN 1/2 TAB DAILY FOR 2 DAYS. Duloxetine HCl (Duloxetine HCl) 30 Mg Cap 30 MG PO HS for 7 Days, #7 CAP take cymbalta 30 mg daily for 1 week then increase to 60 mg daily Furosemide (Furosemide) 40 Mg Tab 40 MG PO DAILY for 30 Days, #30 TAB Metoprolol Succinate (Metoprolol Succinate ER) 25 Mg Tabcr 25 MG PO BID for 30 Days, #60 TABS Venlafaxine Hcl (Effexor Extended Rel) 75 Mg Capcr 75 MG PO QAM for 7 Days, #7 CAP Continued Medications: Albuterol (Ventolin Hfa) Aers 2 PUFFS INH Q4H PRN for SOB or Cough, #18 Amlodipine Besylate (Amlodipine Besylate) 10 Mg Tab 10 MG PO DAILY for 30 Days, #30 TABS Dutasteride (Dutasteride) 0.5 Mg Cap 0.5 MG PO DAILY Gabapentin (Gabapentin) 100 Mg Cap 200 MG PO HS Levothyroxine Sodium (Levothyroxine Sodium) 150 Mcg Tab 1 TAB PO DAILY for 30 Days, #30 TAB 5 Refills Lisinopril (Prinivil) 20 Mg Tab 20 MG PO DAILY, TAB Loratadine (Claritin) 10 Mg Tab 1 TAB PO DAILY for 30 Days, #30 TAB 5 Refills Magnesium Oxide (Mag-Ox) 400 Mg Tab 400 MG PO QAM, TAB Polyethylene Glycol 3350 (Miralax) 1 Pow Pow 17 GM PO DAILY, #527 GM Tamsulosin HCl (Tamsulosin HCl) 0.4 Mg Cap 0.4 MG PO QAM Warfarin Sodium (Warfarin Sodium) 2.5 Mg Tab 2.5 MG PO 5XWK all days except sunday and sunday Warfarin Sodium (Warfarin Sodium) 2.5 Mg Tab 5 MG PO 2XWK mon, fri Discontinued Medications: Amiodarone Hcl (Cordarone) 200 Mg Tab 200 MG PO DAILY, TAB Diltiazem Hcl (Diltiazem Hcl Er) 60 Mg Cap 60 MG PO DAILY Furosemide (Lasix) 20 Mg Tab 1 TAB PO DAILY for 30 Days, #30 TAB 5 Refills Venlafaxine Hcl (Effexor Extended Rel) 150 Mg Cap 150 MG PO DAILY Referrals At Discharge Follow up Referrals: D[employer] Manager Referral - Please Call For Appointment with Norbert Casiano MD Admission Information HPI (per Admitting provider): 81 year old male who presents to the ER with shortness of breath. Patient reports his symptoms started about 5 days ago. He was seen at his PCP's office today and was found to be hypoxic so he was sent to the ER for further evaluation. Patient reports progressive shortness of breath. He reports shortness of breath with minimal exertion. He reports an occasional non productive cough. He traveled to [place] via train last week. He reports increasing lower extremity edema. He denies orthopnea. He does not weigh himself on a daily basis. He denies fever and chills. He has has episodes of diaphoresis. He reports some chest soreness from the cough and shortness of breath. Denies exertional chest pain or pressure or palpitations. He reports mild intermittent lightheadedness and dizziness which is chronic. He reports diarrhea. No abdominal pain, nausea, vomiting, BRBPR, or dark tarry stools. He denies any urinary symptoms. In the ER, patient was hypoxic in the 60s on room air and 85% on NRB. Patient was placed on BiPap with improvement in saturations. CXR is showing pulmonary edema vs. BL pneumonia. ProBNP is elevated , trop is mildly elevated, no EKG changes. He was treated with neb, solumedrol, IV Mg+, IV Lasix, Rocephin, and Levaquin. Physical Exam (per Admitting): General Appearance: no apparent distress Head: normocephalic Eyes: normal inspection ENT: hearing grossly normal Neck: supple, no JVD Respiratory/Chest: no respiratory distress, + decreased breath sounds, + wheezing (faint, scattered, end expiratory), + pertinent finding (tolerating BiPap well) Cardiovascular: + irregularly irregular (rate uncontrolled in the 100s at times), + pertinent finding (+1-2 edema BLLE) Abdomen/GI: normal bowel sounds, non tender, soft, + distended Extremities/Musculoskelatal: normal inspection, no calf tenderness Neurologic/Psych: no motor/sensory deficits, alert, normal mood/affect, oriented x 3 Skin: normal color, warm/dry Hospital Course Acute decompensated systolic and diastolic congestive heart failure clinically improved adequate diuresis , volume status has normalized no KENNEDY 2 step exercise done today shows no desaturation noted on activity ECHO : Mild reduction in systolic function, EF 45-50%. appreciate input from Cardiology Continue oral furosemide, 40 mg/day ( was on Lasix 20 mg daily ) cont on ACEI Bilateral pleural effusions Secondary to all of the above Status post right thoracentesis on October 21, 2016 Status post left thoracentesis on October 22, 2016 Atrial fibrillation Rates uncontrolled Amiodarone discontinued due to concern for pulmonary toxicity. will have out pt follow up with pulmonology for re evaluation and indication for steroid for possible amiodarone induced lung toxicity cont Toprol XL 25 mg BID. Continue chronic Coumadin anticoagulation. 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 -in winter times QTc prolong > 500 concern for Effexor causing cardiac arrhythmia Psych consulted for medication adjustment discussed with Psych -need to be on taper dose to wean off Effexor and possible start on Cymbalta -which dose not effect Qtc Appreciate Psych input Effexor will be reduced to 75 mg PO daily for 1 week then stop if no significant withdrawal signs noted start on low dose Cymbalta 30 mg daily for 1 week , then increase to 60 mg daily as Effexor is discontinued pt is asked to take Cymbalta at night time to separate dose between Effexor and Cymbalta to prevent serotonin syndrome instructed pt to contact family physician with any concern ACUTE GOUT ON LEFT GREAT TOE: Has pain and swelling on left foot uric acid elevated ~8 hx of recent gouty arthritis started on PO Prednisone taper Elevated troponin secondary to the acute CHF exacerbation No chest pain-no evidence of ACS EKG with a chronic LBBB. TTE: EF 45-50%. No significant change from prior TTE from 08/2015 Hypertension lisinopril and amlodipine DISPOSITION stable to be discharged home today Total time spent on discharge = 40 MINS This includes examination of the patient, discharge planning, medication reconciliation, and communication with other providers. Discharge Instructions Discharge Instructions Date of Service Oct 25, 2016. Admission Reason for Admission: Acut Respratory Failure With Hypoxia Discharge Discharge Diagnosis / Problem: ACUTE CHF WITH COMBINED SYSTOLIC AND DIASTOLIC FAILURE /AFIB Discharge Goals Goal(s): Decrease discomfort, Improve function, Diagnostic testing, Therapeutic intervention Activity Recommendations Activity Limitations: resume your previous activity . Instructions / Follow-Up Instructions / Follow-Up HOSPITAL FOLLOWUP 10/31/2016 9:[address] Kita Santillan MD Internal Medicine [facility] CARDIOLOGY FOLLOW UP : 11/07/2016 1:00 PM Ramana Lugo DO Cardiology [facility] PULMONOLOGY FOLLOW UP WITH DR CASIANO , PLEASE CALL OFFICE TO SCHEDULE APPOINTMENT ANTICOAGULATION CLINIC FOLLOW UP : 10/26/2016 5:15 PM [facility], [facility] NEW MEDICATIONS : LASIX DOSE INCREASED TO 40 MG DAILY ( WAS ON 20 MG DAILY ) TOPROL XL 25 MG TWICE DAILY DO NOT TAKE AMIODARONE AND DIGOXIN DO NOT TAKE EFFEXOR 150 MG DAILY REDUCE DOSE OF EFFEXOR 75 MG DAILY FOR 1 WEEK , THEN STOP ( IF NO SIDE EFFECT /DISCONTINUATION SYMPTOM NOTED ) START TAKING CYMBALTA 30 MG DAILY AT NIGHT FOR 1 WEEK INCREASE TO 60 MG DAILY AFTER A WEEK PLEASE NOTIFY YOUR FAMILY PHYSICIAN WITH CONCERN Call your Primary Care doctor if any of the following symptoms or problems start or get worse: * Shortness of breath or difficulty breathing * Wake up at night short of breath * Chest pain * Cough * Swelling of your hands, feet, or legs * More fatigued or tired with your normal activity * Palpitations - sudden fast heart beats WEIGHT * Weigh yourself every morning after using the bathroom. * Use the same scale. * Wear the same amount of clothing. * Write your weight down on a chart. * Call your Primary Care doctor if you gain more than 2-3 pounds in 1-2 days. MEDICATIONS * Use this discharge instruction sheet for medication instructions. * Take your medications at the time your doctor ordered. * Do not skip a dose of your medicines. * If you miss a dose of medicine, take it as soon as possible, but DO NOT DOUBLE A DOSE. * Read your medicine information when you get home. * Know all of the side effects of your medicine. If in doubt, ask your pharmacist * Call your Primary Care doctor's office if you have any side effects. * Be sure all of your doctors know what medicine and herbs you take (including cold, flu, and herbal medicine). Take the following with you to your follow-up doctor appointments: * Weight Chart * Medication List * List of questions Do not drink excessive alcohol, beer or wine. Current Hospital Diet Patient's current hospital diet: AHA Diet (Heart Healthy), Diabetes Type 2 Diet Discharge Diet Recommended Diet: AHA Diet (Heart Healthy), Diabetes Type 2 Diet Pending Studies Studies pending at discharge: no Medical Emergencies . Who to Call and When: Call 911 or go to the Emergency Room if: * If at any time you feel your situation is an emergency * You have tightness or pain in your chest that does not go away with rest or Nitroglycerin * You are very short of breath even with rest . Non-Emergent Contact Non-Emergency issues call your: Primary Care Provider . . "Provider Documentation" section prepared by Kaylah Meza. . VTE Core Measure Inpt VTE Proph given/why not?: Warfarin (Coumadin) Additional Copies To Kita Santillan M.D. Lesko, Michael G., DO
[2016-10-25] MEDS: WARFARIN SOD 2.5 MG TAB PO SCH (15:22)
[2016-10-26] MEDS ORDERED: DULOXETINE (CYMBALTA) 30 MG CAP PO SCH (09:00)
[2016-10-26] MEDS ORDERED: VENLAFAXINE HCL XR 75 MG CAPXR PO SCH (09:00)
--- NOTE | 2016-11-22 08:10 | Procedure Note ---
Procedure Note Date of Service Nov 22, 2016. Procedure Note Procedures: Left sided Thoracentesis Consent: obtained via the patient and placed into the chart Pre-Procedural Dx: Post-Procedural Dx: Analgesia: 8cc of 1% Liquid Lidocaine Procedure: The patient was placed in an upright position and thoracic US was used to select a spot for the procedure. A spot along the posterior axillary line was marked in the 7th intercostal space. The patient was then draped and prepped in a sterile fashion. A modified Seldinger technique was then used for catheter placement. The patient was then cleaned and placed at a 60 degree angle in the bed were the US was used to evaluate for possible pneumothorax. The US showed good lung sliding and [place] signs. EBL: none Complications: none
== END 2016-10-25 16:28 | disposition home or self-care (01) | DRG 291 ==
LOC: EDBD 10:41 → C.EDB 10:45 → C.2T 12:06 → ENRESERV 13:38
PROVIDERS: ADMIT Internal Medicine; ATTEND Hospitalist
PROC: 0W993ZZ Drainage of Right Pleural Cavity, Percutaneous Approach (ICD-10-PCS; principal; 2016-10-21)
PROC: 0W9B3ZZ Drainage of Left Pleural Cavity, Percutaneous Approach (ICD-10-PCS; 2016-10-22)
DX: I50.43 Acute on chronic combined systolic (congestive) and diastolic (congestive) heart failure (principal); J96.01 Acute respiratory failure with hypoxia; J18.9 Pneumonia, unspecified organism; J44.0 Chronic obstructive pulmonary disease with (acute) lower respiratory infection; J44.1 Chronic obstructive pulmonary disease with (acute) exacerbation; I13.0 Hypertensive heart and chronic kidney disease with heart failure and stage 1 through stage 4 chronic kidney disease, or unspecified chronic kidney disease; J90 Pleural effusion, not elsewhere classified; I48.91 Unspecified atrial fibrillation; M19.90 Unspecified osteoarthritis, unspecified site; F32.9 Major depressive disorder, single episode, unspecified; R79.89 Other specified abnormal findings of blood chemistry; E66.9 Obesity, unspecified; N40.0 Benign prostatic hyperplasia without lower urinary tract symptoms; E03.9 Hypothyroidism, unspecified; G47.33 Obstructive sleep apnea (adult) (pediatric); E78.5 Hyperlipidemia, unspecified; G25.81 Restless legs syndrome; N18.3 Chronic kidney disease, stage 3 (moderate); E11.22 Type 2 diabetes mellitus with diabetic chronic kidney disease; H81.09 Meniere's disease, unspecified ear; H91.90 Unspecified hearing loss, unspecified ear; M10.9 Gout, unspecified; F39 Unspecified mood [affective] disorder; Z96.21 Cochlear implant status; I45.81 Long QT syndrome; R19.7 Diarrhea, unspecified; R59.0 Localized enlarged lymph nodes; M48.06 Spinal stenosis, lumbar region; Z79.899 Other long term (current) drug therapy; Z88.8 Allergy status to other drugs, medicaments and biological substances; Z98.1 Arthrodesis status; Z79.01 Long term (current) use of anticoagulants; Z87.891 Personal history of nicotine dependence; Z68.32 Body mass index [BMI] 32.0-32.9, adult; Z87.19 Personal history of other diseases of the digestive system; Z86.2 Personal history of diseases of the blood and blood-forming organs and certain disorders involving the immune mechanism

== ENCOUNTER → 2017-07-27 | Outpatient (CLI) | payer OTHER ==
[~2017-07-27] MED LIST changes: -AMIO200T4 PO; -ASTN NAE; -ATV1 PO; +DULO60CA44 PO; -FENO134C PO; -FEXO1TAB46 PO; -FLNIN/ NAE; +FLUT0.15 NAE; -FURO20TA PO; +LEVO150T9 PO; -LEVO75TA PO; +LISI20TA3 PO; +LORA10TA51 PO; -LSN40 PO; +LSX40 PO; -MECL25TA2 PO; -NIAC250T8 PO; -OMEP20CA9 PO; +POLY335019 PO; +PRLSR20 PO; +TPRSR25 PO; -VENL150C56 PO; +VNTHFA/IN INH
--- NOTE | 2017-07-27 13:32 | DIAGNOSTIC IMAGING REPORT ---
VIDEO SWALLOW STUDY CLINICAL HISTORY: Dysphagia. COMPARISON STUDY: Video swallow study dated 02/17/2013. Fluoroscopy time: 1.7 minutes. FINDINGS: Fluoroscopic guidance was provided to the department of speech pathology in performing a video swallow study. The patient consumed barium impregnated pudding, cracker with paste, nectar thick liquid, and thin barium while the swallowing mechanism was observed in real-time. No aspiration was seen with any of the sampled textures. Trace penetration was seen with thin liquid. Vallecular residuals were noted. IMPRESSION: 1. There is trace penetration seen with thin barium. 2. No aspiration was seen with any of the sampled textures. 3. See dedicated speech pathology report for detailed findings and recommendations. Dictated: 07/27/2017 12:31 PM Transcribed: 07/27/2017 1:32 PM [facility] Electronically signed by: Destin Jackson M.D. 07/27/2017 1:34 PM Dictated Date/Time: 07/27/2017 12:31 PM
--- NOTE | 2017-07-27 14:55 | SWALLOWING EVALUATION ---
REFERRING SPEECH PATHOLOGIST: n/a HISTORY: This 81 year-old man was referred for a VFSS at [facility] in order to rule out aspiration and to address c/o "choking" episodes occurring with every meal. The patient has a PMH significant for CHF with EF = 45-50%, VINC[place], asthma, GERD, esophageal dysmotility, OA, CKD III, DM II. He also reports being [place] and having poor STM. His last VFSS was completed in 2012 and resulted without aspiration, but with (+) evidence for esophageal dysmotility. His last Barium Swallow Study was completed in 2011 and resulted with findings (+) for esophageal dysmotility. Currently the patient's diet level is regular. PROCEDURE: The patient was seen in the Radiology Department of [facility] for the VFSS. Cursory examination of the oral cavity revealed adequate dentition. Movement of the articulators was WNL. The patient was seated on a stool and was viewed in both the Anterior-Posterior (A-P) and Lateral planes. Volitional phonation exercises completed in the A-P plane revealed bilateral vocal fold movement and vocal intensity within functional limits. In the lateral plane, the patient was given the following boluses: 1 tsp. thin liquid barium x 2, single swallow thin liquid barium self-presented from a cup, sequential swallows of thin liquid barium self-presented from a straw, 1 tsp. nectar-thick liquid barium, single swallow nectar-thick liquid barium self-presented from a cup, 1 tsp. barium pudding, and 1 club cracker with barium pudding. The patient was then repositioned into the A-P plane and given 1 tsp. barium pudding. RESULTS: Oral Stage: No interlabial bolus loss. Bolus loss to the anterior sulci when holding a thin liquid bolus intraorally. Mastication and lingual movement for bolus transport were timely and efficient. No oral bolus retention. The pharyngeal stage of the swallow was initiated when the bolus head was in the valleculae. Oral-stage of swallow considered WNL. Pharyngeal Stage: No bolus between soft palate and pharyngeal wall. Partial laryngeal elevation. Anterior hyoid excursion, epiglottic inversion, and laryngeal vestibular closure are complete. Pharyngeal stripping wave present. Bilateral pseudodiverticulae present in AP plane, but a second swallow cleared the vallecular residual. Distention and duration of PES opening was adequate. Narrow column of contrast between tongue base and pharyngeal wall with collection of bolus in the valleculae after the swallow. This cleared with a second swallow. No aspiration during this study. Scant amount of penetration with thin liquids in sequential swallows, but nothing more than that. No significant pharyngeal bolus retention. Esophageal Stage: A pudding bolus transited the esophageal without retention. SUMMARY/RECOMMENDATIONS: This patient presents with oral-pharyngeal swallowing WNL for age. He is always at risk for aspiration given his age and his diagnoses of asthma, CHF, GERD and esophageal dysmotility. The following is recommended: 1. MOIST diet 2. Compensatory Strategies: choose warm/tepid beverages at meals and avoid icy cold drinks; keep head of bed elevated AT LEAST 30-degrees at ALL times (even sleep); sit FULLY upright at all meals and for 30 minutes after meals; alternate solids and liquids 1:1 during meals 3. Consideration of f/u with gastroenterology and/or ENT if symptoms persist 4. Consideration of f/u with neurology if STM deficits worsen/persist. A summary of the results and recommendations was discussed with the patient and his immediately following the study. They are anticipating f/u with the referring [employer] OPERATOR. Thank you for referral of this patient. Please contact me at if any additional information is needed.
== END | disposition home or self-care (01) ==
LOC: C.RAD 11:23
PROVIDERS: ATTEND Nurse Practitioner
DX: R13.10 Dysphagia, unspecified (principal)